=== PATIENT | female | born 1995 | race Caucasian/White ===

== ENCOUNTER 2019-05-30 13:00 | Inpatient (IN) | payer MEDICAID, SELFPAY ==
[2019-05-30 11:39] VITALS: BMI 37.3
[2019-05-30 12:10] LABS: ROM Internal Control Test YES-OK TO RESULT pt. (Internal QC); ROM Patient Test Negative (Negative)
[2019-05-30] MEDS: Lactated Ringers 1,000 ML 999 ML IV (13:20)
[2019-05-30 13:34] LABS: Absolute Neutrophil Count 10.6 X10^3/uL (2.0-7.7); Basophil# 0.04 X10^3/uL; Basophil% 0.3 % (0-1); Eosinophil# 0.04 X10^3/uL; Eosinophils% 0.3 % (0-5); Hematocrit 40.4 % (37-47); Hemoglobin 13.1 g/dL (12.0-15.0); Lymphocyte % 10.2 % (19-41); Mean Corp Hgb Conc 32.4 g/dL (32-36); Mean Corpuscular Hgb 28.2 pg (27.0-32.0); Mean Corpuscular Volume 86.9 fL (81-99); Mean Platelet Vol. 10.4 fl (6.2-12.0); Monocyte# 0.69 X10^3/uL; Monocyte% 5.4 % (0-10); NRBC Flagged by Analyzer 0 % (0-5); Neutrophil # 10.55 X10^3/uL (2.7-7.7); Neutrophil % 83.2 % (47-70); Platelet Count 239 K/mm3 (150-450); RBC Distribution Width CV 14.8 % (11.6-14.6); RBC Distribution Width SD 46.5 fl (35.1-43.9); Red Blood Count 4.65 M/mm3 (4.2-5.4); White Blood Count 12.7 K/mm3 (4.4-11.0)
[2019-05-30] MEDS: Lactated Ringers 500 ML 999 ML IV (13:45)
--- NOTE | 2019-05-30 13:59 | HP.PCM_ITS ---
History Date of Admission: 05/30/19 Final MELANIE: 05/22/19 Gestational age: 41 Weeks and 1 Days History of this : This is a 24 year-old, G [], P [], at 41 weeks gestational age. Allergies amoxicillin Allergy (Verified 05/30/19 11:40) Rash azithromycin Allergy (Verified 05/30/19 11:40) Rash cefprozil [From Cefzil] Allergy (Verified 05/30/19 11:40) Rash Home Medications: Home Medications Vits [Prenatabs FA ] 1 tablet PO DAILY MDD 06/05/14 Smoking Status: Never smoker Alcohol: None Substance Use Type: Marijuana Number of Fetus(es): 1 NST - FHR Rate Baby A Baseline: 120 Variability:: Moderate Accelerations:: 15 x 15 Uterine Activity:: Q 2 minutes History Past Pregnancies: Past Pregnancies Delivery Date Name GA/ Weeks Outcome Route Wt Infant Sex Labor Length Anesthesia Delivery Location Provider FOB Labs: See [facility] H&P Physical Exam General: Alert, Oriented x3 Abdomen: Soft, Non Tender, Non-Distended Neurological: Cranial nerves II-XII grossly intact [employer]: Normal external genitalia Estimated gestational size: Appropriate for gestational size Cervix Dilation (cm): 5.5 - AROM meconium fluid Station: -1 Effacement (%): 90 Assessment/Plan This is a 24 year-old, G2, P1001, at 41&1 weeks gestational age. Admit to L&D Expectant management GBS negative Pain - epidural as desired EFW - less than 4500g, patient with adequate pelvis
[2019-05-30] MEDS: fentaNYL-bupivacaine (epidural) 100 ML BAG EPIDURAL (14:19)
[2019-05-30] MEDS: Oxytocin 30 units/NS 500 ml 30 UNITS/500 ML IV.SOLN 334 UNITS IV (17:18)
--- NOTE | 2019-05-30 17:39 | PCM.OPRPT ---
Vaginal Delivery Maternal Presentation: Active Labor Amniotic Membrane Rupture Type: Artificial Amniotic Fluid Description: Moderate meconium Final MELANIE: 05/22/19 Gestational age: 41 Weeks and 1 Days Date of Procedure: 05/30/19 Pre-Operative Diagnosis: Labor Post-Operative Diagnosis: Labor Surgery/ Procedure Performed: Spontaneous Vaginal Delivery Type of Anesthesia: Epidural Description of Procedure: Called to room when patient C/C/+2. Patient prepped & draped in stirrups. She pushed to deliver head. head gently guided to allow delivery of anterior and posterior shoulders. No excess traction placed on head. Body delivered and 3VC clamped & cut. taken to warmer where supervisor costuming present. Placenta delivered with gentle traction. Good uterine tone obtained. Presentation: KAIN Placental Delivery Description: Expressed Placenta Disposition: [facility] Cord Vessel Description: 3 Vessels Cord Entanglement: None Estimated Blood Loss: 250ml A gender: Female (1 minute): 8 (5 minute): 9 Episiotomy Description: None Laceration: 1st degree - left sided vaginal - repaired with 3-0 vicryl Medications given after delivery: IV Pitocin Complications: None
[2019-05-30 19:32] VITALS: BP 122/60; PULSE 93; RESP 16; TEMP 36.8
[2019-05-31 00:29] VITALS: BP 103/55; PULSE 76; RESP 14; TEMP 37.1
[2019-05-31] MEDS: Ibuprofen 600 MG Tablet PO (02:52)
[2019-05-31 03:53] VITALS: BP 110/49; PULSE 73; RESP 14; TEMP 36.9
--- NOTE | 2019-05-31 07:43 | DCINST_ITS ---
Discharge Diet: No Restrictions Discharge Activity: May Drive, May Shower May resume sexual activity in: 6 weeks Additional Instructions: If you experience any of the following, contact your healthcare provider. * Bleeding that soaks a pad every hour for 2 hours * Fever 100.4 or higher * Unrelieved incision or abdominal pain * Swelling, redness, discharge or bleeding from your incision or episiotomy site * Your incision begins to separate * Problems urinating (including inability to urinate or burning while urinating). * Visual changes * Severe headache * Flu-like symptoms * Pain or redness in one of both of your breasts * Pain, warmth, tenderness or swelling in your legs, especially the calf area * Frequent nausea and vomiting * Symptoms of depression or anxiety If you experience any of the following, call 911 or go to the nearest Emergency Room. * Chest pain * Problems breathing * Seizure activity * Partial or complete paralysis of a body part, slurred speech, weakness or drooping of the face, or a sudden inability to walk or hold your balance Allergies/Adverse Reactions: Allergies amoxicillin Allergy (Verified 05/30/19 11:40) Rash azithromycin Allergy (Verified 05/30/19 11:40) Rash cefprozil [From Cefzil] Allergy (Verified 05/30/19 11:40) Rash Medications to take at Discharge Vits [Prenatabs FA ] 1 tablet PO DAILY MDD 06/05/14 Acetaminophen [Tylenol] 1,000 mg PO Q8H PRN PRN tab 05/31/19 Ibuprofen [Motrin] 600 mg PO Q6H PRN PRN tab 05/31/19 Primary Care Physician: Anjali Harrington MD [Primary Care Provider] - Test Results: Test results from this visit will be discussed in further detail at your follow- up appointment, if applicable.
--- NOTE | 2019-05-31 07:43 | PCM.DCVAG ---
Discharge Diet: No Restrictions Discharge Activity: May Drive, May Shower May resume sexual activity in: 6 weeks Additional Instructions: If you experience any of the following, contact your healthcare provider. Bleeding that soaks a pad every hour for 2 hours Fever 100.4 or higher Unrelieved incision or abdominal pain Swelling, redness, discharge or bleeding from your incision or episiotomy site Your incision begins to separate Problems urinating (including inability to urinate or burning while urinating). Visual changes Severe headache Flu-like symptoms Pain or redness in one of both of your breasts Pain, warmth, tenderness or swelling in your legs, especially the calf area Frequent nausea and vomiting Symptoms of depression or anxiety If you experience any of the following, call 911 or go to the nearest Emergency Room. Chest pain Problems breathing Seizure activity Partial or complete paralysis of a body part, slurred speech, weakness or drooping of the face, or a sudden inability to walk or hold your balance Allergies/Adverse Reactions: Allergies amoxicillin Allergy (Verified 05/30/19 11:40) Rash azithromycin Allergy (Verified 05/30/19 11:40) Rash cefprozil [From Cefzil] Allergy (Verified 05/30/19 11:40) Rash Medications to take at Discharge Vits [Prenatabs FA ] 1 tablet PO DAILY MDD 06/05/14 Acetaminophen [Tylenol] 1,000 mg PO Q8H PRN PRN tab 05/31/19 Ibuprofen [Motrin] 600 mg PO Q6H PRN PRN tab 05/31/19 Primary Care Physician: Anjali Harrington MD [Primary Care Provider] - Test Results: Test results from this visit will be discussed in further detail at your follow-up appointment, if applicable.
--- NOTE | 2019-05-31 07:43 | PCM.PN.OB ---
Subjective: Denies complaints - Physical Exam Vitals/I&O's: Vital Signs Temp Pulse Resp BP 98.4 F 73 14 110/49 L 05/31/19 03:53 05/31/19 03:53 05/31/19 03:53 05/31/19 03:53 Oxygen Delivery Method Room Air Weight: 204 lb Body Mass Index (BMI) 37.3 Intake and Output for Last 24 Hours 05/29/19 05/30/19 05/31/19 23:59 23:59 23:59 Intake Total 1999. / 1999. Output Total 500 / 500 300 / 300 Balance 1500.00 / 1500.00 -300 / -300 General: Alert, Oriented x3 Abdomen: Soft, Non Tender, Non-Distended - ff mid & below umb Extremities: No Calf Tenderness Laboratory Results 05/30/19 11:45: Vag Amniotic Fld Detect Negative 05/30/19 13:20: WBC 12.7 H, RBC 4.65, Hgb 13.1, Hct 40.4, MCV 86.9, MCH 28.2, MCHC 32.4, RDW Std Deviation 46.5 H, RDW Coeff of Jose M 14.8 H, Plt Count 239, MPV 10.4, Immature Gran % (Auto) 0.600, Neut % (Auto) 83.2 H, Lymph % (Auto) 10.2 L, [place] % (Auto) 5.4, Eos % (Auto) 0.3, Baso % (Auto) 0.3, Absolute Neuts (auto) 10.6 H, Absolute Lymphs (auto) 1.30, Nucleated RBC % 0 05/30/19 13:20: Blood Type B POSITIVE, Antibody Screen NEGATIVE Current Medications Acetaminophen (Tylenol) 1,000 mg PO Q8H PRN PRN PRN Reason: Pain Score 1-3/10 Bisacodyl (Dulcolax) 10 mg RECTAL UD PRN PRN Reason: If no BM Dibucaine (Dibucaine) 1 applic TOPICAL TID PRN PRN; Protocol PRN Reason: Discomfort Hydrocortisone (Hytone) 1 applic TOPICAL TID PRN PRN; Protocol PRN Reason: Discomfort Ibuprofen (Motrin) 600 mg PO Q6H PRN PRN PRN Reason: Pain Score 1-3/10 Last Admin: 02/07/20 02:52 Dose: 600 mg Documented by: Methylergonovine Maleate (Methergine) 0.2 mg IM X1 PRN PRN Reason: Excess bleeding/uterine atony Ondansetron HCl (Zofran) 4 mg IV Q4H PRN PRN PRN Reason: Nausea Oxycodone HCl (Oxyir) 5 - 10 mg PO Q4H PRN PRN PRN Reason: Pain Score 4-10/10 Senna/Docusate Sodium (Senokot-S, Claudette-Colace) 1 - 2 tablet PO DAILY PRN PRN PRN Reason: Constipation Simethicone (Mylicon) 80 mg PO PCHS PRN PRN Reason: Indigestion/Stomach pain Sodium Chloride () 5 - 15 ml IV UD PRN PRN Reason: SALINE FLUSH Medical Necessity - Tobacco Use Smoking Status: Never smoker Assessment/Plan PPD#1 Routine care D/c home later today per patient request
[2019-05-31 09:20] VITALS: BP 116/43; PULSE 82; RESP 16; TEMP 36.6
[2019-05-31 12:30] VITALS: BP 115/54; PULSE 69; TEMP 36.8
[2019-05-31 15:45] VITALS: BP 116/54; PULSE 75; TEMP 36.9
== END 2019-05-31 19:05 | disposition home or self-care (01) | DRG 560 ==
LOC: WPOUT 13:08 → WP 13:08
PROVIDERS: Advanced Practice Midwife; Admitting Provider Obstetrics & Gynecology; PCP Pediatrics; Referring Provider Obstetrics & Gynecology; Visit Provider Obstetrics & Gynecology
DX: O48.0 Post-term pregnancy (principal); O77.0 Labor and delivery complicated by meconium in amniotic fluid; O70.0 First degree perineal laceration during delivery; K21.9 Gastro-esophageal reflux disease without esophagitis; Z3A.41 41 weeks gestation of pregnancy; Z37.0 Single live birth
CPT/HCPCS: 84112; 85025; 86850; 86900; 86901; 99218; J7120; G0378

== ENCOUNTER 2020-12-29 22:02 | Emergency (ER) | payer MEDICAID, SELFPAY ==
[2020-12-29 22:03] VITALS: BP 130/67; PULSE 88; RESP 18; TEMP 36.6; O2SAT 98; BMI 25.9
--- NOTE | 2020-12-29 23:31 | EX.ED.DYSGE1 ---
HPI History of Present Illness Chief Complaint: Other, Pain/Inj Informant: patient Onset/Context/Timing Onset: Weeks Context: Gradual Onset Timing: Waxes and wanes Current Severity: Mild Maximum Severity: Moderate Narrative Narrative: Patient presents secondary to abdominal pain. She states 2 weeks ago she noted pain under her left ribs that seem to be worse after she would eat, especially a lot of junk food. She also developed pain on the right groin at that time. She states she did note that the pain was better after she would work out. Today she has reproducible tenderness over the lower ribs bilaterally. She thought this was lymph nodes. She does report some mild shortness of breath but no cough. She had some slight chest tightness and states that she felt like she was having a panic attack because of the pain. She denies any significant past medical or surgical history. She denies any possibility of . PFSH PFSH no medical history Home Medications vit,[id number] [Prenatabs FA] 1 tab PO DAILY MDD 06/05/14 [History Last Taken 05/29/19] acetaminophen 1,000 mg PO Q8H PRN PRN tab 05/31/19 [Rx Last Taken Unknown] ibuprofen 600 mg PO Q6H PRN PRN tab 05/31/19 [Rx Last Taken Unknown] sulfamethoxazole-trimethoprim [Bactrim DS] 1 tab PO BID #6 tab 12/30/20 [Rx Last Taken Unknown] Allergy/AdvReac Type Severity Reaction Status Date / Time amoxicillin Allergy Rash Verified 12/29/20 22:02 azithromycin Allergy Rash Verified 12/29/20 22:02 cefprozil [From Cefzil] Allergy Rash Verified 12/29/20 22:02 Surgical History H/O wisdom tooth extraction Social History Smoking Status: Never smoker ROS ROS ED Constitutional Constitutional ED: Denies chills or fever(s) Eyes Eyes: Denies change in vision ENT ENT ED: Denies sore throat Cardiovascular Cardiovascular: Reports chest pain Respiratory/Chest Respiratory/Chest: Reports dyspnea; Denies cough Gastrointestinal Gastrointestinal: Reports abdominal pain; Denies diarrhea, nausea or vomiting Genitourinary Genitourinary ED: Denies dysuria or hematuria Musculoskeletal Musculoskeletal: Denies back pain Integumentary Denies rash Neurologic Neurologic: Denies headache(s) or weakness Psychiatric Psychiatric: Denies anxiety or depression Endocrine Endocrinology: Denies polydipsia or polyuria Allergic/Immunologic Allergic/Immunologic ED: Denies urticaria EXAM Physical Exam Const Vital Signs: 12/29/20 22:03 12/29/20 23:45 Temperature 98 F Temperature Source Temporal Pulse Rate 88 Respiratory Rate 18 Respiratory Effort Normal Non-Labored Respiratory Pattern Normal Blood Pressure 130/67 H Blood Pressure Mean 88 Pulse Ox 98 Oxygen Delivery Method Room Air Positive well nourished and well developed General Appearance ED: well developed HEENT Reports normocephalic and head/scalp atraumatic Eyes PERRL and EOMs intact bilaterally Neck supple Chest Wall inspection of chest normal and palpation of chest normal Resp normal respiratory effort and clear to auscultation bilaterally Cardio regular rate and regular rhythm GI normal to inspection, nondistended, normoactive bowel sounds and non-tender Palpation: soft Extremity normal to inspection Neuro oriented x3 and no sensory deficits noted Sensorium / Orientation: alert Motor Exam: strength 5/5 throughout Psych mental status grossly normal Skin no rashes or lesions noted MDM MDM MDM Narrative Medical decision making narrative: Patient is given dose of Toradol. Lab work and urinalysis obtained. Lab Data Attestation: I reviewed the patient's lab results. Labs: Laboratory Results - last 24 hr 12/29/20 12/29/20 12/29/20 23:10 23:10 23:35 WBC 7.4 RBC 4.80 Hgb 13.5 Hct 41.5 MCV 86.5 MCH 28.1 MCHC 32.5 RDW Std Deviation 41.4 RDW Coeff of Jose M 13.3 Plt Count 327 MPV 9.8 Immature Gran % (Auto) 0.400 Neut % (Auto) 56.6 Lymph % (Auto) 31.0 [place] % (Auto) 9.7 Eos % (Auto) 1.4 Baso % (Auto) 0.9 Absolute Neuts (auto) 4.2 Absolute Lymphs (auto) 2.29 Nucleated RBC % 0 Sodium 139 Potassium 3.3 L Chloride 108 H Carbon Dioxide 28.0 Anion Gap 3 L BUN 13 Creatinine 0.84 Estim Creat Clear Calc 80.97 Est GFR (MDRD) Af Amer 106 Est GFR (MDRD) Non-Af 88 BUN/Creatinine Ratio 15.5 Glucose 79 Calcium 9.4 Total Bilirubin 0.30 Direct Bilirubin 0.09 AST 21 ALT 33 Alkaline Phosphatase 70 Total Protein 8.7 H Albumin 3.5 Globulin 5.2 H Lipase 142 Urine Color Yellow Urine Clarity Clear Urine pH 7.0 Ur Specific [place] 1.015 Urine Protein 15 H Urine Glucose (UA) Normal Urine Ketones Negative Urine Occult Blood Negative Urine Nitrite Negative Urine Bilirubin Negative Urine Urobilinogen Normal Ur Leukocyte Esterase 100 H Urine RBC 0 SEEN Urine WBC 5-10 SEEN Ur Squamous Epith Cells 0-5 SEEN Urine Bacteria 1+ Urine Mucus 0 SEEN Radiography Diagnostic Testing: Radiology Impression Chest X-Ray 12/29/20 23:55 IMPRESSION: Negative x-ray examination of the chest. Electronically Signed: Jose Maria Gannon MD at 0:07 EDT Tel , Service support , Treatment and Re-Evaluation Comments:: On repeat evaluation patient resting comfortably. Lab work remarkable only for slightly low potassium at 3.3. LFTs and lipase normal. Urinalysis does reveal white cells with 1+ bacteria. She will be covered with 3 days of Bactrim. Discharge Plan Triage Chief Complaint: Other, Pain/Inj ED Provider: Saima Maddox Dx/Rx/DC Orders Clinical Impression: Abdominal pain, UTI (urinary tract infection) Instructions: ED Pain, Acute, Uncertain Cause, ED CYSTITIS Female Adult Prescriptions: New sulfamethoxazole-trimethoprim [Bactrim DS] 800-160 mg tablet 1 tab PO BID Qty: 6 RF: 0 No Action vit,[id number] [Prenatabs FA] 1 TABLET tablet 1 tab PO DAILY MDD RF: 0 acetaminophen 500 MG tablet 1,000 mg PO Q8H PRN PRN (Reason: Pain Score 1-3/10) RF: 0 ibuprofen 600 MG tablet 600 mg PO Q6H PRN PRN (Reason: Pain Score 1-3/10) RF: 0 Primary Care Provider: Care Physician,No Primary Referrals: Sharath Cordero MD [STAFF PHYSICIAN] - 10-14 Days if not better Care Physician,No Primary [Primary Care Provider] - Disposition Disposition: Home, Self Care
[2020-12-29 23:49] LABS: Mucous, Urine 0 SEEN /hpf (<or=2+); Red Blood Cells-Urine 0 SEEN /hpf (0-5)
[2020-12-29 23:50] LABS: Absolute Lymphocyte Count 2.29 X10^3/uL (0.83-4.51); Absolute Neutrophil Count 4.2 X10^3/uL (2.0-7.7); Basophil# 0.07 X10^3/uL; Basophil% 0.9 % (0-1); Eosinophils% 1.4 % (0-5); Hematocrit 41.5 % (37-47); Hemoglobin 13.5 g/dL (12.0-15.0); Lymphocyte # 2.29 X10^3/ul (0.83-4.51); Mean Corp Hgb Conc 32.5 g/dL (32-36); Mean Corpuscular Hgb 28.1 pg (27.0-32.0); Mean Corpuscular Volume 86.5 fL (81-99); Mean Platelet Vol. 9.8 fl (6.2-12.0); Monocyte# 0.72 X10^3/uL; Monocyte% 9.7 % (0-10); NRBC Flagged by Analyzer 0 % (0-5); Neutrophil # 4.18 X10^3/uL (2.7-7.7); Neutrophil % 56.6 % (47-70); Platelet Count 327 K/mm3 (150-450); RBC Distribution Width CV 13.3 % (11.6-14.6); RBC Distribution Width SD 41.4 fl (35.1-43.9); White Blood Count 7.4 K/mm3 (4.4-11.0)
[2020-12-29 23:52] LABS: Color, Urine Yellow (Yellow); Glucose, Dipstick Normal (Normal); Ketone-Dipstick Negative (Negative); Leukocyte Esterase-Dipstick 100 /ul (Negative); Nitrite-Dipstick Negative (Negative); Occult Blood-Urine Negative /ul (Negative); Protein-Dipstick 15 mg/dl (Negative); Specific Gravity, Urine 1.015 (1.002-1.030); Urine Bilirubin Dipstick Negative (Negative); Urine Clarity Clear (Clear); Urine Urobilinogen Normal (Normal)
--- NOTE | 2020-12-29 23:55 | RAD_ITS ---
STUDY: X-RAY CHEST REASON FOR EXAM: Female, 25 years old. lower rib pain, sob TECHNIQUE: PA and lateral COMPARISON: None. FINDINGS: The lungs are clear and expanded. There is no demonstrated pleural abnormality. Normal size heart. Normal mediastinum and ebony. Normal visualized pulmonary arteries. Normal visualized aortic arch and descending thoracic aorta. Normal visualized thoracic spine. Normal visualized ribs, clavicles, and shoulders. There is no demonstrated abnormality of the visualized soft tissue structures of the upper abdomen. RAD/Chest PA and Lateral IMPRESSION: Negative x-ray examination of the chest. Electronically Signed: Jose Maria Gannon MD at 0:07 EDT Tel , Service support ,
[2020-12-30 00:04] LABS: Bacteria 1+ /hpf (None Seen); Squamous Epithelial Cells - UA 0-5 SEEN /hpf (5-10); White Blood Cells 5-10 SEEN /hpf (0-5)
[2020-12-30 00:08] LABS: AST(SGOT) 21 U/L (15-37); Alanine Aminotransfer ALT/SGPT 33 U/L (13-56); Albumin, Serum 3.5 g/dL (3.2-5.0); Alkaline Phosphatase 70 U/L (45-117); Anion Gap 3 (5-15); BUN 13 mg/dL (7-18); BUN/Creat Ratio 15.5 RATIO (10-20); Bilirubin, Direct 0.09 mg/dL (0.00-0.30); Calcium,Total 9.4 mg/dL (8.5-10.1); Chloride 108 mmol/L (98-107); Creatinine, Serum 0.84 mg/dL (0.55-1.02); EST Glomerular Filtration Rate 88 mL/min (>60); Est Glom Filt Rate - Afr Amer 106 mL/min (>60); Estimated Creatinine Clearance 80.97 ml/min; Globulin 5.2 g/dL (2.2-4.2); Glucose 79 mg/dL (74-106); Lipase 142 U/L (73-393); Potassium 3.3 mmol/L (3.5-5.1); Protein, Total 8.7 g/dL (6.4-8.2); Sodium Level 139 mmol/L (136-145)
[2020-12-30] MEDS: Smz/Tmp Ds Tablet 1 TABLET PO (01:28)
[2020-12-30 01:29] VITALS: PULSE 76; RESP 14; O2SAT 98
== END 2020-12-30 01:29 | disposition home or self-care (01) ==
PROVIDERS: Emergency Provider Emergency Medicine
DX: R10.9 Unspecified abdominal pain (principal); N39.0 Urinary tract infection, site not specified
CPT/HCPCS: 71046; 80048; 80076; 81001; 83690; 85025; 99283

== ENCOUNTER 2021-04-01 18:30 | Emergency (ER) | payer MEDICAID, SELFPAY ==
[2021-04-01 18:31] VITALS: BP 153/74; PULSE 86; RESP 15; TEMP 36.2; O2SAT 98; BMI 27.8
--- NOTE | 2021-04-01 18:34 | RAD_ITS ---
EXAM: XR CHEST, 1 VIEW CLINICAL INDICATION: chest pain TECHNIQUE: Frontal view of the chest. This report was created using [employer] report generation technology. COMPARISON: Chest x-ray 12/29/2020. FINDINGS: LUNGS AND PLEURAL SPACES: Unremarkable. No consolidation or edema. No pneumothorax. No effusion. HEART: Unremarkable. Cardiac silhouette not enlarged. MEDIASTINUM: Central airways and mediastinal contour are unremarkable. BONES/JOINTS: Unremarkable. SOFT TISSUES: Unremarkable. RAD/Chest 1 View (Portable) IMPRESSION: No radiographic evidence of acute cardiopulmonary disease. Electronically Signed: Gerber Mora MD at 21:35 EST Tel , Service support ,
--- NOTE | 2021-04-01 18:34 | EKG12_ITS ---
Test Reason : CP Blood Pressure : / mmHG Vent. Rate : 081 BPM Atrial Rate : 081 BPM P-R Int : 136 ms QRS Dur : 092 ms QT Int : 368 ms P-R-T Axes : 036 057 -07 degrees QTc Int : 427 ms Normal sinus rhythm Nonspecific T wave abnormality Abnormal ECG Confirmed by DOROTHY CONNER, MARIAM ([id number]), design editor MARLENE JANSEN ([id number]) on 04/02/2021 11:39:32 AM Referred By: DULCE Confirmed By:MARIAM DE LA CRUZ MD
--- NOTE | 2021-04-01 21:27 | EDS_ITS ---
HPI History of Present Illness Chief Complaint: Chest Pain Informant: patient Onset/Context/Timing Onset: Today Activity at onset: sudden Timing: Intermittent (Lasting seconds) Quality: Positive for Pressure and Sharp Location: Substernal Current Severity: Gone Maximum Severity: Moderate Worsened By: Nothing Relieved By: Nothing Associated Symptoms: Positive for - (There is no radiation.); Negative for Nausea, Vomiting, Diaphoresis, Dyspnea, Cough, Fever, Lightheadedness, Acid Reflux and Palpitations Narrative Narrative: Patient is a 25-year-old female who presents with intermittent sharp central chest pain that occurred after eating spicy food. She denies history of reflux, peptic ulcer disease or hiatal hernia. She denies intolerance to greasy or fried foods. She denies family history of cholelithiasis. Patient did not take anything for the pain. Patient is alert control pills. She has no symptoms or complaints presently Prior Similar Symptoms: No CVD Risk Factors: Negative for Hypertension, Diabetes, Hypercholesterolemia, Family History 1' </=55 and Smoking PE Risk Factors: Negative for Recent Travel/Surgery, Recent Immobilization, Prior DVT or PE, Cancer and OCP + Smoking + >/=35 TAD Risk Factors: Negative for Marfan's Syndrome, Hypertension and Family History PFSH PFSH Home Medications vit,[id number] [Prenatabs FA] 1 tab PO DAILY MDD 06/05/14 [History Last Taken 05/29/19] acetaminophen 1,000 mg PO Q8H PRN PRN tab 05/31/19 [Rx Last Taken Unknown] ibuprofen 600 mg PO Q6H PRN PRN tab 05/31/19 [Rx Last Taken Unknown] sulfamethoxazole-trimethoprim [Bactrim DS] 1 tab PO BID #6 tab 12/30/20 [Rx Last Taken Unknown] Allergy/AdvReac Type Severity Reaction Status Date / Time amoxicillin Allergy Rash Verified 04/01/21 18:33 azithromycin Allergy Rash Verified 04/01/21 18:33 cefprozil [From Cefzil] Allergy Rash Verified 04/01/21 18:33 Surgical History H/O wisdom tooth extraction Social History (Updated 04/01/21 @ 21:[address] Chrsi Esteban MD) household members: none Smoking Status: Never smoker alcohol intake: current alcohol intake frequency: holidays/special occasions only substance use type: does not use ROS ROS ED Constitutional Constitutional ED: Denies chills, fever(s), subjective or sweats Eyes Eyes: Reports none ENT ENT ED: Denies ear pain, rhinorrhea or sore throat Cardiovascular Cardiovascular: Reports as per HPI; Denies orthopnea or paroxysmal nocturnal dyspnea Respiratory/Chest Respiratory/Chest: Denies cough, dyspnea, dyspnea on exertion, orthopnea, paroxysmal nocturnal dyspnea or sputum Gastrointestinal Gastrointestinal: Denies abdominal pain, constipation, diarrhea, nausea or vomiting Genitourinary Genitourinary ED: Denies dysuria, hematuria or urinary frequency Musculoskeletal Musculoskeletal: Denies arthralgias, back pain, myalgias or neck pain Integumentary Denies abscess or rash Neurologic Neurologic: Denies headache(s) or weakness Endocrine Endocrinology: Denies polydipsia, polyphagia or polyuria Hematologic/Lymphatic Hematologic/Lymphatic: Denies easy bleeding or easy bruising Allergic/Immunologic Allergic/Immunologic ED: Denies mouth swelling or urticaria EXAM Physical Exam Const Vital Signs: 04/01/21 18:31 Temperature 97.2 F L Temperature Source Temporal Pulse Rate 86 Respiratory Rate 15 Blood Pressure 153/74 H Blood Pressure Mean 100 Pulse Ox 98 Oxygen Delivery Method Room Air Positive well nourished and well developed General Appearance ED: well developed and NAD; Negative for pallor HEENT Reports moist mucous membranes normocephalic and atraumatic Eyes PERRL and EOMs intact bilaterally General Eye ED: Negative for pale conjunctiva or scleral icterus Neck no lymphadenopathy, supple and no JVD Chest Wall palpation of chest normal Resp normal respiratory effort Effort and Inspection: respiratory distress Cardio regular rate, regular rhythm, S1 normal heart sound and S2 normal heart sound GI normal to inspection, nondistended, normoactive bowel sounds, soft to palpation and non-tender; Negative for hepatosplenomegaly GI Narrative: Negative clinical Wild sign Back/Spine no CVA tenderness and no thoracic nor lumbar tenderness Cervical Spine: Negative for cervical spine tenderness Extremity normal to inspection Extremity Narrative: There is no asymmetry, swelling, discoloration, leg vein distention, palpable cords or tenderness along the distribution of the deep venous system. General Extremety ED: Negative for edema or tenderness General Extremity: Negative for edema Neuro oriented x3 and CN's II-XII intact bilaterally Sensorium / Orientation: awake and alert Psych mental status grossly normal Skin no rashes or lesions noted and no wounds General Skin Exam: Negative for jaundice or pallor Heart Score History: Slightly/Non-Suspicious ECG: Normal Age: </= 45 years Risk Factors: No Risk Factors Score: 0 MDM MDM MDM Narrative Medical decision making narrative: With history of transient chest pain lasting seconds this is noncardiac etiology. Per nurse protocol chest x-ray and EKG was placed. Chest x-ray is unremarkable. EKG is normal. There is a flipped T wave in lead III which is a normal variant. Radiography Chest X-Ray - ED: 1 View, Read by ED Physician, Normal, Heart, Lungs, Mediastinum and Bony Structures EKG Initial EKG: Attestation: I personally reviewed and interpreted this EKG as follows: Interpretation: Sinus Rhythm (Ventricular rate of 81. AR interval 136 ms. QS duration 92 ms. QT duration 368 ms. [place] is normal. There is no abnormality noted.) Discharge Plan Triage Chief Complaint: Chest Pain ED Provider: Chris Esteban Dx/Rx/DC Orders Clinical Impression: Intermittent chest pain Instructions: ED Chest Pain, Noncardiac Prescriptions: No Action vit,[id number] [Prenatabs FA] 1 TABLET tablet 1 tab PO DAILY MDD RF: 0 acetaminophen 500 MG tablet 1,000 mg PO Q8H PRN PRN (Reason: Pain Score 1-3/10) RF: 0 ibuprofen 600 MG tablet 600 mg PO Q6H PRN PRN (Reason: Pain Score 1-3/10) RF: 0 sulfamethoxazole-trimethoprim [Bactrim DS] 800-160 mg tablet 1 tab PO BID Qty: 6 RF: 0 Primary Care Provider: Care Physician,No Primary Referrals: Niru Young MD [STAFF PHYSICIAN] - 3-5 Days if not improving Care Physician,No Primary [Primary Care Provider] - Disposition Disposition: Home, Self Care
[2021-04-01 21:42] VITALS: BP 120/107; PULSE 69; RESP 17; O2SAT 100
[2021-04-01 21:50] LABS: Absolute Lymphocyte Count 1.66 X10^3/uL (0.83-4.51); Absolute Neutrophil Count 3.6 X10^3/uL (2.0-7.7); Basophil# 0.04 X10^3/uL; Basophil% 0.7 % (0-1); Eosinophil# 0.16 X10^3/uL; Eosinophils% 2.6 % (0-5); Hematocrit 39.8 % (37-47); Hemoglobin 12.8 g/dL (12.0-15.0); Lymphocyte # 1.66 X10^3/ul (0.83-4.51); Lymphocyte % 27.4 % (19-41); Mean Corp Hgb Conc 32.2 g/dL (32-36); Mean Corpuscular Volume 87.1 fL (81-99); Mean Platelet Vol. 9.9 fl (6.2-12.0); Monocyte# 0.59 X10^3/uL; Monocyte% 9.7 % (0-10); NRBC Flagged by Analyzer 0 % (0-5); Neutrophil # 3.59 X10^3/uL (2.7-7.7); Neutrophil % 59.3 % (47-70); Platelet Count 305 K/mm3 (150-450); RBC Distribution Width CV 13.3 % (11.6-14.6); RBC Distribution Width SD 42.1 fl (35.1-43.9); Red Blood Count 4.57 M/mm3 (4.2-5.4); White Blood Count 6.1 K/mm3 (4.4-11.0)
[2021-04-01 22:07] LABS: Anion Gap 8 (5-15); BUN 9 mg/dL (7-18); BUN/Creat Ratio 11.9 RATIO (10-20); Chloride 109 mmol/L (98-107); Creatinine, Serum 0.76 mg/dL (0.55-1.02); EST Glomerular Filtration Rate 98 mL/min (>60); Est Glom Filt Rate - Afr Amer 119 mL/min (>60); Glucose 91 mg/dL (74-106); Potassium 3.5 mmol/L (3.5-5.1); Sodium Level 140 mmol/L (136-145); Troponin-I HS < 3 pg/mL (3.0-54.0)
== END 2021-04-01 21:51 | disposition home or self-care (01) ==
LOC: ED 21:47
PROVIDERS: Emergency Provider Emergency Medicine
DX: R07.89 Other chest pain (principal)
CPT/HCPCS: 71045; 80048; 84484; 85025; 93005; 99284; A4216

== ENCOUNTER 2024-12-13 19:16 | Emergency (ER) | payer MEDICAID, SELFPAY ==
[2024-12-13 19:16] VITALS: BP 112/82; PULSE 87; RESP 16; TEMP 36.3; O2SAT 99; BMI 32.5
--- NOTE | 2024-12-13 19:25 | RAD_ITS ---
PROCEDURE: RIBS DWIGHT MIN 4V W/PA CHEST 12/13/2024 REASON FOR EXAM: PAIN. Right anterior and mid pain. TECHNIQUE: RIBS DWIGHT MIN 4V W/PA CHEST FINDINGS: LUNGS AND PLEURA: The lungs are clear. No pleural effusion or pneumothorax. HEART AND MEDIASTINUM: The heart size and mediastinal contours are normal. BONES: No acute osseous abnormality. RAD/Ribs Dwight Min 4V w/PA Chest IMPRESSION: No acute rib fracture identified. No pneumothorax. Reading Location: [id number]
--- NOTE | 2024-12-13 20:54 | EX.ED.DYSGE1 ---
HPI History of Present Illness Chief Complaint: Chest Other Informant: patient Narrative Narrative: Recent increased productive cough yesterday coughing with right ear pain. No fevers she vapes. No asthma history. No vomiting or diarrhea. States having chills. No urinary symptoms. Last menstrual period a week ago. No history of gastric ulcers or kidney injury. PFSH PFSH Home Medications ?Medication ?Instructions ?Recorded ?Last Taken ?Type albuterol sulfate 90 mcg/actuation 1 - 2 puff inhalation Q4H PRN PRN 12/13/24 Unknown Rx aerosol inhaler (Ventolin HFA) Wheezing ##1 nicotine (polacrilex) 2 mg gum 2 mg buccal Q8H PRN nicotine 12/13/24 Unknown Rx cravings #50 ea Allergy/AdvReac Type Severity Reaction Status Date / Time amoxicillin Allergy Rash Verified 12/13/24 19:18 azithromycin Allergy Rash Verified 12/13/24 19:18 [email or web address] (From Cefzil) Allergy Rash Verified 12/13/24 19:18 Surgical History H/O wisdom tooth extraction Social History household members: none Smoking Status: Current every day smoker tobacco type: e-cigarettes alcohol intake: current alcohol intake frequency: holidays/special occasions only substance use type: does not use ROS ROS ED Constitutional Constitutional ED: Reports chills; Denies fever(s) Cardiovascular Cardiovascular: Denies chest pain Respiratory/Chest Respiratory/Chest: Reports cough Gastrointestinal Gastrointestinal: Denies diarrhea or vomiting Musculoskeletal Musculoskeletal: Reports none and other Details: Right rib pain Integumentary Denies rash or wounds Neurologic Neurologic: Denies weakness EXAM Physical Exam Const Vital Signs: 12/13/24 19:16 12/13/24 20:38 12/13/24 21:03 Temperature 97.3 F L Temperature Source Temporal Pulse Rate 87 72 Respiratory Rate 16 16 Respiratory Effort Normal Non-Labored Respiratory Pattern Normal Normal Blood Pressure 112/82 H Blood Pressure Mean 92 Pulse Ox 99 12/13/24 22:34 Temperature 98 F Temperature Source Pulse Rate 67 Respiratory Rate 18 Respiratory Effort Respiratory Pattern Blood Pressure 104/64 Blood Pressure Mean 77 Pulse Ox 100 Positive well nourished and well developed General Appearance ED: well developed and NAD HEENT Reports moist mucous membranes normocephalic and atraumatic Eyes General Eye ED: Yes normal appearance of both eyes Neck full ROM Chest Wall Chest Narrative: Tender palpation right lower ribs no crepitus. Chest: tenderness Resp Resp Narrative: Symmetric breath sounds. Mild inspiratory and expiratory wheezing. No distress. Effort and Inspection: Negative for respiratory distress Cardio regular rate, regular rhythm and no murmurs Peripheral Pulses: pulses 2+ throughout GI normal to inspection, nondistended, normoactive bowel sounds and non-tender Palpation: Negative for guarding or rebound tenderness present Extremity normal to inspection General Extremety ED: Negative for edema or tenderness General Extremity: Negative for edema Neuro oriented x3 and no sensory deficits noted Sensorium / Orientation: awake and alert Skin no rashes or lesions noted and no wounds MDM MDM MDM Narrative Medical decision making narrative: Interventions / MDM: Differential diagnosis: Upper respiratory infection, rib strain, bronchospasms Diagnosis considered but do not suspect: Pneumonia however x-ray negative. Fracture x-ray negative. Pneumothorax however x-ray negative. My EKG interpretation: N/A Imaging independently reviewed and interpreted by myself: Bilateral rib series with PA chest: No fracture, no pneumothorax, no pneumonia. External documents reviewed: N/A Test considered but not ordered:N/A ED course: Patient with mild wheezing on exam. Nontoxic no distress. Tender palpation right lower ribs. Motrin started aerosol treatment ordered. Nursing protocol ordered bilateral rib series with PA chest. Wheezing improved on reevaluation. Prescribed inhaler. She requested nicotine prescription for gum which was sent to her pharmacy. Discussed Tylenol Motrin as needed for pain control. Outpatient follow-up given. All questions were answered. Re-evaluation: stable Disposition discussed with patient/family/significant other: Patient Case discussed with consulting clinician: N/A This note was generated with [employer] dictation software. It may contain incorrect words, spelling, and punctuation that were not noted in checking the note before signing. Radiography Diagnostic Testing: Clinical Impression(s) from Imaging Studies Ribs w/Chest X-Ray 12/13/24 19:25 IMPRESSION: No acute rib fracture identified. No pneumothorax. Reading Location: [facility] Discharge Plan Triage Chief Complaint: Chest Other ED Provider: Le,David Dx/Rx/DC Orders Clinical Impression: URI (upper respiratory infection), Bronchospasm, Rib sprain, Current every day vaping Instructions: ED Bronchospasm (Adult), ED URI, Viral, No Abx (Adult) Prescriptions: New albuterol sulfate [Ventolin HFA] 90 mcg/actuation HFA aerosol inhaler 1 - 2 puff inhalation Q4H PRN PRN (Reason: Wheezing) Qty: 1 0RF nicotine (polacrilex) 2 mg gum 2 mg buccal Q8H PRN (Reason: nicotine cravings) Qty: 50 0RF Primary Care Provider: Care Physician,No Primary Referrals: Sylvie Sun DO [Med Staff - Active Staff] - 1-2 Weeks Care Physician,No Primary [Primary Care Provider] - Activity Restrictions/Additional Instructions: Your rib x-rays and chest x-ray are negative. Use inhaler as needed for wheezing. Continue ibuprofen or Tylenol to help with pain. Follow-up with primary care provider to get establish care. Print Language: Marshallese Disposition Disposition: Home, Self Care Discharge Date/Time: 12/13/24 22:36
--- OUTSIDE RECORDS SUMMARY | 2024-12-13 20:58 | XMS RPT_ITS | CCD ---
Author Organization [facility] Care Team Providers Care Educational Assistant Name Role Phone Unavailable Primary Care Provider UnavailRicardo Kohler MD Primary Care Provider CLARK HOYOS Attending Unavailable RICARDO TELLEZ Primary Care Unavailab Ricardo Nix MD Primary Care Provider Podlogar CHEMIST ASSISTANTJoaquina CISNEROS Unavailable [phone] Allergies Allergy Classification Reported Allergen(s) Allergy Type Date of Onset Reaction(s) Facility (6 sources) Amoxicillin; Translations: [AMOXICILLIN] Drug Allergy 01-28-2005 [facility] [place] Work Phone: (6 sources) Azithromycin; Translations: [AZITHROMYCIN] Drug Allergy 01-28-2005 [facility] [place] Work Phone: (6 sources) cefprozil; Translations: [CEFPROZIL] Drug Allergy 01-28-2005 [facility] [place] Work Phone: Medications Current Medications Medication Drug Class(es) Dates Sig (Normalized) Sig (Original) clindamycin 300 mg oral capsule (1 source) Lincosamide Antibacterial Start: 03-26-2023 End: 04-05-2023 take 1 capsule by mouth three times daily clindamycin (CLEOCIN HCL) 300 mg capsule Take 1 capsule by mouth three times a day for 10 days. 30 capsule 0 03/26/2023 04/05/2023 Active Comment on above: Take 1 capsule by [facility] three times a day for 10 days. Desogestrel / Ethinyl Estradiol (6 sources) Progestin, Estrogen Start: 08-04-2022 take 1 tablet by mouth once daily, then take 0.15 tablet by mouth once Desogestrel-Ethinyl Estradiol (APRI) 0.15-0.03 mg per tablet Indications: Encounter for gynecological examination (general) (routine) without abnormal findings Take 1 tablet by mouth once daily. 84 tablet 4 08/04/2022 Active Start: 04-09-2021 End: 08-04-2022 take 1 tablet by mouth once daily, then take 0.15 tablet by mouth once Desogestrel-Ethinyl Estradiol (APRI) 0.15-0.03 mg per tablet Indications: Encounter for BCP ( control pills) initial prescription Take 1 tablet by mouth once daily. 84 tablet 4 04/09/2021 08/04/2022 Discontinued Start: 04-09-2021 take 1 tablet by barbara th once daily, then take 0.15 tablet by mouth once Desogestrel-Ethinyl Estradiol (APRI) 0.15-0.03 mg per tablet Indications: Encounter for BCP ( control pills) initial prescription Take 1 tablet by mouth once daily. 84 tablet 4 04/09/2021 Active Comment on above: Take 1 tablet by barbara th once daily. ofloxacin 3 mg/ml otic solution (1 source) Quinolone Antimicrobial Start: 09-29-2024 End: 10-06-2024 ofloxacin (FLOXIN) 0.3 % otic solution Use 10 drops in the right ear once daily for 7 days. 4 mL 09/29/2024 10/06/2024 Active Completed/Discontinued Medications Medication Drug Class(es) Dates Sig (Normalized) Sig (Original) predniSONE 10 mg oral tablet (3 sources) Start: 11-01-2022 End: 12-20-2022 predniSONE (DELTASONE) 10 mg tablet Take 4 tabs daily x 3 days, then 3 tabs x 3 days, 2 tabs x 3 days, then 1 tab x3 days with food. 30 tablet 0 11/01/2022 12/20/2022 Discontinued (Course of therapy completed) Start: 10-04-2021 End: 08-04-2022 predniSONE (DELTASONE) 10 mg tablet Take 3 tabs daily for 3 days, then 2 tabs daily for 3 days, then 1 tab daily for 3 days with food. 18 tablet 0 10/04/2021 08/04/2022 Discontinued (Other) Comment on above: Take 3 tabs daily fo r 3 days, then 2 tabs daily for 3 days, then 1 tab daily for 3 days with food. Take 4 tabs daily x 3 days, then 3 tabs x 3 days, 2 tabs x 3 days, then 1 tab x3 days with food. Problems Active Problems Problem Classification Problem Date Documented Date Episodic/Chronic Allergic reactions (1 source) Contact dermatitis; Translations: [Unspecified contact dermatitis, unspecified cause] Episodic Cardiac dysrhythmias (1 source) Palpitations; Translations: [Palpitations] 12-20-2022 Episodic Contraceptive and procreative management (1 source) Oral contraception; Translations: [Encounter for surveillance of contraceptive pills] Episodic Menstrual disorders (1 source) Missed period; Translations: [Irregular menstruation, unspecified] 12-20-2022 Chronic Nonmalignant breast conditions (1 source) Fibrocystic change of left breast; Translations: [Diffuse cystic mastopathy of left breast] Chronic Other ear and sense organ disorders (1 source) Unspecified acute noninfective otitis externa, right ear; Translations: [Acute otitis externa of right ear, unspecified type] Onset: 09-29-2024 Episodic Other ear and sense organ disorders (1 source) Acute otitis externa of right ear; Translations: [Unspecified acute noninfective otitis externa, right ear] 09-29-2024 Episodic Other hematologic conditions (1 source) History of anemia; Translations: [Personal history of diseases of the blood and blood-forming organs and certain disorders involving the immune mechanism] 12-20-2022 Episodic Other nutritional; endocrine; and metabolic disorders (4 sources) Body mass index 40+ - severely obese; Translations: [Morbid (severe) obesity due to excess calories] Onset: 12-20-2022 12-20-2022 Chronic Other screening for suspected conditions (not mental disorders or infectious disease) (2 sources) Cancer cervix screening status; Translations: [Encounter for screening for malignant neoplasm of cervix] Episodic Other upper respiratory infections (2 sources) Sore throat symptom; Translations: [Acute pharyngitis, unspecified] 03-26-2023 Episodic Past or Other Problems Problem Classification Problem Date Documented Da te Episodic/Chronic Immunizations and screening for infectious disease (1 source) Antibody titer - finding; Translations: [Raised antibody titer] Onset: 10-28-2013 Resolved: 09-15-2016 04-19-2021 Episodic Other complications of (1 source) Anemia of ; Translations: [Anemia complicating , unspecified trimester] Onset: 03-12-2014 Resolved: 09-15-2016 09-15-2016 Chronic Other and delivery including normal (2 sources) with uncertain dates; Translations: [Encounter for supervision of normal , unspecified, unspecified trimester] Onset: 10-21-2013 Resolved: 09-15-2016 04-19-2021 Episodic Substance-related disorders (1 source) Marijuana user; Translations: [Cannabis use, unspecified, uncomplicated] Onset: 10-05-2018 Resolved: 08-08-2019 08-08-2019 Episodic Results Test Name Value Interpretation Reference Range Facility OV 09-29-2024 CNOV Office Visit ([facility] ) -------- ABIMBOLA HDZ ([id number]) 1995 F Date Time Provider Department 09/29/24 12:15 PM CLARK HOYOS [facility] During your visit today, we recorded the following information about you: Temperature Pulse Respiration Blood pressure 98.3 degrees 82/minute 22/minute 100/70 Weight 87.4 kg Clark Hoyos APRN.POLICE RADIO DISPATCHER 09/29/2024 1:05 PM Signed Subjective HPI Nontoxic-appearing female presents urgent care chief complaint right ear pain. Duration of symptoms 2 days. Associated symptoms right ear discomfort. Has been swimming late recently. No ear trauma loss hearing. Hearing is slightly muffled. No otorrhea. No fevers. Past medical history prescription medications allergies reviewed. .Patient presents with: Ear Pain: Right ear pain, feels clogged x 2 days PAST MEDICAL HISTORY Diagnosis Date Anemia in (HCC) 03/12/2014 NEGATIVE MEDICAL HISTORY 09/20/11 normal color vision PAST SURGICAL HISTORY Procedure Laterality Date PAST SURGICAL HISTORY OF 2018 wisdom teeth ALLERGIES Amoxicillin, Cefzil [Cefprozil], and Zithromax [Azithromycin] MEDICATIONS Desogestrel-Ethinyl Estradiol (APRI) 0.15-0.03 mg per tablet Take 1 tablet by mouth once daily. FAMILY HISTORY Problem Relation Age of Onset No Known Problems Mother Hypertension Father Lipids Father No Known Problems Sister No Known Problems Sister No Known Problems Sister No Known Problems Sister No Known Problems Brother Ischemic Heart Disease Maternal Grandmother Heart Maternal Grandfather SD No Known Problems Paternal Grandmother Heart Attack Paternal Grandfather No Known Problems Son Social History Tobacco Use Smoking status: Never Smokeless tobacco: Never Vaping Use Vaping status: Never Used Substance Use Topics Alcohol use: Not Currently Drug use: No BP 100/70 Pulse 82 Temp 36.8 ?C (98.3 ?F) Resp 22 Wt 87.4 kg (192 lb 10.9 oz) LMP 07/08/2022 (Exact Date) SpO2 97% BMI 35.10 kg/m? Review of Systems Constitutional: Negative for chills, fever and malaise/fatigue. HENT: Positive for ear pain. Negative for congestion, ear discharge, sinus pain and sore throat. Eyes: Negative for blurred vision, pain, discharge and redness. Respiratory: Negative for cough, hemoptysis, sputum production, shortness of breath, wheezing and stridor. Cardiovascular: Negative for chest pain. Gastrointestinal: Negative for abdominal pain, diarrhea, nausea and vomiting. Musculoskeletal: Negative for myalgias. Skin: Negative for itching and rash. Neurological: Negative for dizziness and headaches. Objective Physical Exam HENT: Head: Normocephalic. Jaw: No trismus, tenderness, swelling or pain on movement. Right Ear: External ear normal. Left Ear: Tympanic membrane, ear canal and external ear normal. Ears: Comments: Edema erythema noted to right auditory canal. Pain with palpation to pinna. No external erythema edema. Unable to visualize TM due to edema. Mild tenderness with palpation over TM joints bilaterally. Nose: No congestion. Mouth/Throat: Mouth: Mucous membranes are moist. Pharynx: Oropharynx is clear. Uvula midline. No oropharyngeal exudate or posterior oropharyngeal erythema. Eyes: Pupils: Pupils are equal, round, and reactive to light. Cardiovascular: Rate and Rhythm: Normal rate. Pulmonary: Effort: Pulmonary effort is normal. No accessory muscle usage, respiratory distress or retractions. Breath sounds: No stridor. No wheezing, rhonchi or rales. Abdominal: Palpations: Abdomen is soft. Tenderness: There is no abdominal tenderness. There is no guarding or rebound. Musculoskeletal: Cervical back: No erythema or tenderness. No pain with movement. Normal range of motion. Lymphadenopathy: Cervical: No cervical adenopathy. Neurological: General: No focal deficit present. Mental Status: She is alert and oriented to person, place, and time. Mental status is at baseline. ASSESSMENT/PLAN: 1. Acute otitis externa of right ear, unspecified type - ICD9: 380.10, ICD10: H60.501 Diagnosis otitis externa right ear. Placed on ofloxacin otic drops. Patient was educated on supportive therapies. Patient will follow up with primary care provider as needed. Patient was instructed to immediately proceed to emergency room for any new, worsening, or symptoms lasting longer than anticipated. The patient's clinical presentation is otherwise unremarkable at this time. Based on exam and clinical finding, the patient is stable for discharge. Plan of care was discussed with patient. Patient verbalizes understanding and agrees to plan of care. This note was generated using [employer] software. It may contain errors in wording, punctuation, or spelling. Clark Hoyos, SAMUEL.POLICE RADIO DISPATCHER Allergies As of Date: 09/29/2024 Noted Allergy Reaction AMOXICILLIN 01/28/2005 (more content not included)... Normal [facility] STREP A MOLECULAR (POC)on Procedural Control Valid [facility] Strep A (POCT) Positive Abnormal Negative [facility] [place] Basic Metabolic Profile (BMP )on 04-02-2021 BUN/CRE 11.9 RATIO Normal 10-20 [facility] Comment on above: Order Comment: Comme nts: Specimen #1 Performed By: #### L 100.0100, L500.2500, L501.4020 #### [facility] [address] [place], [address] CA,Total 9.0 mg/dL Normal 8.5-10.1 [facility] Comment on above: Order Comment: Comme nts: Specimen #1 Performed By: #### L 100.0100, L500.2500, L501.4020 #### [facility] [address] [place], [address] Chloride [Moles/Vol] 109 mmol/L High 98-107 [facility] Comment on above: Order Comment: Comme nts: Specimen #1 Performed By: #### L 100.0100, L500.2500, L501.4020 #### [facility] [address] [place], [address] CO2 [Moles/Vol] 23.0 mmol/L Normal 21.0-32.0 [facility] Comment on above: Order Comment: Comme nts: Specimen #1 Performed By: #### L 100.0100, L500.2500, L501.4020 #### [facility] [address] [place], [address] Creatinine [Mass/Vol] 0.76 mg/dL Normal 0.55-1.02 [facility] Comment on above: Order Comment: Comme nts: Specimen #1 Result Comment: The validity of the calculated GFR GFRAA in patients over 70 years has not been determined. Clinical correlation is essential. Performed By: #### L 100.0100, L500.2500, L501.4020 #### [facility] [address] [place], [address] ECRCL 89.50 ml/min Normal [facility] Comment on above: Order Comment: Comme nts: Specimen #1 Performed By: #### L 100.0100, L500.2500, L501.4020 #### [facility] [address] [place], [address] EST GFR - AA 119 mL/min Normal >60 [facility] Comment on above: Order Comment: Comme nts: Specimen #1 Result Comment: Afri can Trinidadian GFR Calc Performed By: #### L 100.0100, L500.2500, L501.4020 #### [facility] [address] [place], [address] GAP 8 Normal 5-15 [facility] Comment on above: Order Comment: Comme nts: Specimen #1 Performed By: #### L 100.0100, L500.2500, L501.4020 #### [facility] [address] [place], [address] GFR/1.73 sq M.predicted among non-blacks MDRD (S/P/Bld) [Vol rate/Area] 98 mL/min/{1.73_m2} Normal >60 [facility] Comment on above: Order Comment: Comme nts: Specimen #1 Result Comment: Non- GFR Calc Performed By: #### L 100.0100, L500.2500, L501.4020 #### [facility] [address] [place], [address] Glucose [Mass/Vol] 91 mg/dL Normal 74-106 [facility] Comment on above: Order Comment: Comme nts: Specimen #1 Result Comment: Frederick walker note revised GLUCOSE reference range effective 2017. Performed By: #### L 100.0100, L500.2500, L501.4020 #### [facility] [address] [place], [address] Potassium [Moles/Vol] 3.5 mmol/L Normal 3.5-5.1 [facility] Comment on above: Order Comment: Comme nts: Specimen #1 Performed By: #### L 100.0100, L500.2500, L501.4020 #### [facility] [address] [place], [address] Sodium [Moles/Vol] 140 mmol/L Normal 136-145 [facility] Comment on above: Order Comment: Comme nts: Specimen #1 Performed By: #### L 100.0100, L500.2500, L501.4020 #### [facility] [address] [place], [address] Urea nitrogen [Mass/Vol] 9 mg/dL Normal 7-18 [facility] Comment on above: Order Comment: Comme nts: Specimen #1 Performed By: #### L 100.0100, L500.2500, L501.4020 #### [facility] [address] [place], [address] L501.4020on 04-02-2021 TROPONIN-I HS < 3 Low 3.0-54.0 [facility] Comment on above: Order Comment: Comme nts: Specimen #1 Result Comment: Plea se Note: New Test Units and Gender Specific Reference Ranges. For more information see Policy Stat Procedure Arabi High Sensitivity Troponin (TNIH) and attachments. Performed By: #### L 100.0100, L500.2500, L501.4020 #### [facility] [address] [place], [address] 12 Lead EKGon 04-01-2021 12 Lead EKG [facility] [address] [place] [address] 12 Lead EKG 04/01/21 1839 MR#: [id number] Acct: [id number] Name: ABIMBOLA HDZ Rep #: [id number] : 1995 25 From: Abner Hoskins MD Attending Dr: Status: DEP ER Ordering Dr: Provider,Ed P. Date: 04/01/21 Location: ED Sex: F C Admitted: Test Reason : CP Blood Pressure : / mmHG Vent. Rate : 081 BPM Atrial Rate : 081 BPM P-R Int : 136 ms QRS Dur : 092 ms QT Int : 368 ms P-R-T Axes : 036 057 -07 degrees QTc Int : 427 ms Normal sinus rhythm Nonspecific T wave abnormality Abnormal ECG Confirmed by DOROTHY CONNER, ABNER ([id number]), news editor MARLENE JANSEN ([id number]) on 04/02/2021 11:39:32 AM Referred By: DULCE Confirmed By:ABNER HOSKINS MD 04/02/21 1139 Date Abner Hoskins MD CC: Dr. Chris Esteban MD; ED PHYSICIAN PROVIDER; No Primary Care Physician Signed Normal [facility] CBC W/Diff, Automatedon 12-0 -2020 Absolute Lymph 1.66 X10 3/uL Normal 0.83-4.51 [facility] Comment on above: Performed By: #### L 100.0100, L500.2500, L501.4020 #### [facility] [address] [place], [address] Absolute Neut 3.6 X10 3/uL Normal 2.0-7.7 [facility] Comment on above: Performed By: #### L 100.0100, L500.2500, L501.4020 #### [facility] [address] [place], [address] Basophils/100 WBC (Bld) 0.7 % Normal 0-1 [facility] Comment on above: Performed By: #### L 100.0100, L500.2500, L501.4020 #### [facility] [address] [place], [address] Eosinophils/100 WBC (Bld) 2.6 % Normal 0-5 [facility] Comment on above: Performed By: #### L 100.0100, L500.2500, L501.4020 #### [facility] [address] [place], [address] Erythrocyte distribution width (RBC) [Ratio] 13.3 % Normal 11.6-14.6 [facility] Comment on above: Performed By: #### L 100.0100, L500.2500, L501.4020 #### [facility] [address] [place], [address] Hematocrit (Bld) [Volume fraction] 39.8 % Normal 37-47 [facility] Comment on above: Performed By: #### L 100.0100, L500.2500, L501.4020 #### [facility] [address] [place], [address] Hemoglobin (Bld) [Mass/Vol] 12.8 g/dL Normal 12.0-15.0 [facility] Comment on above: Performed By: #### L 100.0100, L500.2500, L501.4020 #### [facility] [address] [place], [address] IG% 0.300 Normal 0.0-0.9 [facility] Comment on above: Result Comment: IG% - Immature Granulocytes (promyelocytes, myelocytes and metamyelocytes) > 1% indicates that a LEFT SHIFT is Present. Performed By: #### L 100.0100, L500.2500, L501.4020 #### [facility] [address] [place], [address] Lymphocytes/100 WBC (Bld) 27.4 % Normal 19-41 [facility] Comment on above: Performed By: #### L 100.0100, L500.2500, L501.4020 #### [facility] [address] [place], [address] MCH (RBC) [Entitic mass] 28.0 pg Normal 27.0-32.0 [facility] Comment on above: Performed By: #### L 100.0100, L500.2500, L501.4020 #### [facility] [address] [place], [address] MCHC (RBC) [Mass/Vol] 32.2 g/dL Normal 32-36 [facility] Comment on above: Performed By: #### L 100.0100, L500.2500, L501.4020 #### [facility] [address] [place], [address] MCV (RBC) [Entitic vol] 87.1 fL Normal 81-99 [facility] Comment on above: Performed By: #### L 100.0100, L500.2500, L501.4020 #### [facility] [address] [place], [address] Monocytes/100 WBC (Bld) 9.7 % Normal 0-10 [facility] Comment on above: Performed By: #### L 100.0100, L500.2500, L501.4020 #### [facility] [address] [place], [address] Neutrophils/100 WBC (Bld) 59.3 % Normal 47-70 [facility] Comment on above: Performed By: #### L 100.0100, L500.2500, L501.4020 #### [facility] [address] [place], [address] Nucleated RBC (Bld) [#/Vol] 0 10*3/uL Normal 0-5 [facility] Comment on above: Performed By: #### L 100.0100, L500.2500, L501.4020 #### [facility] [address] [place], [address] Platelet mean volume (Bld) [Entitic vol] 9.9 fL Normal 6.2-12.0 [facility] Comment on above: Performed By: #### L 100.0100, L500.2500, L501.4020 #### [facility] [address] [place], [address] Platelets (Bld) [#/Vol] 305 10*3/uL Normal 150-450 [facility] Comment on above: Performed By: #### L 100.0100, L500.2500, L501.4020 #### [facility] [address] [place], [address] RBC (Bld) [#/Vol] 4.57 10*6/uL Normal 4.2-5.4 [facility] Comment on above: Performed By: #### L 100.0100, L500.2500, L501.4020 #### [facility] [address] [place], [address] RDW SD 42.1 fl Normal 35.1-43.9 [facility] Comment on above: Performed By: #### L 100.0100, L500.2500, L501.4020 #### [facility] [address] [place], [address] WBC (Bld) [#/Vol] 6.1 10*3/uL Normal 4.4-11.0 [facility] Comment on above: Performed By: #### L 100.0100, L500.2500, L501.4020 #### [facility] [address] [place], [address] Chest 1 View (Portable)on Chest 1 View (Portable) [facility] Services [address] [place] [address] Chest 1 View (Portable) MR#: [id number] Acct: [id number] Name: ABIMBOLA HDZ Rep #: [id number] : 1995 F 25 From: Gerber Mora MD PCP: Care Physician,No Primary Status: PRE ER Study: Chest 1 View (Portable) Date of Exam: 04/01/21 Exam# [id number] Ordering Dr: Chris Esteban MD EXAM: XR CHEST, 1 VIEW CLINICAL INDICATION: chest pain TECHNIQUE: Frontal view of the chest. This report was created using [employer] report generation technology. COMPARISON: Chest x-ray 12/29/2020. FINDINGS: LUNGS AND PLEURAL SPACES: Unremarkable. No consolidation or edema. No pneumothorax. No effusion. HEART: Unremarkable. Cardiac silhouette not enlarged. MEDIASTINUM: Central airways and mediastinal contour are unremarkable. BONES/JOINTS: Unremarkable. SOFT TISSUES: Unremarkable. RAD/Chest 1 View (Portable) IMPRESSION: No radiographic evidence of acute cardiopulmonary disease. Electronically Signed: Gerber Mora MD at 21:35 EST Tel , Service support , CC: Dr. Chris Esteban MD; No Primary Care Physician Staff Physical Therapist: Signed Normal [facility] Emergency Department Summary on 04-01-2021 Emergency Department Summary [facility] Medical Records Department [address] [place] [address] Emergency Department Summary 04/01/21 MR#: [id number] Acct: [id number] Name: ABIMBOLA HDZ Rep #: [id number] : 1995 25 From: Chris Esteban MD PCP: Care Physician,No Primary Status:PRE ER Location: ED HPI History of Present Illness Chief Complaint: Chest Pain Informant: patient Onset/Context/Timing Onset: Today Activity at onset: sudden Timing: Intermittent (Lasting seconds) Quality: Positive for Pressure and Sharp Location: Substernal Current Severity: Gone Maximum Severity: Moderate Worsened By: Nothing Relieved By: Nothing Associated Symptoms: Positive for - (There is no radiation.); Negative for Nausea, Vomiting, Diaphoresis, Dyspnea, Cough, Fever, Lightheadedness, Acid Reflux and Palpitations Narrative Narrative: Patient is a 25-year-old female who presents with intermittent sharp central chest pain that occurred after eating spicy food. She denies history of reflux, peptic ulcer disease or hiatal hernia. She denies intolerance to greasy or fried foods. She denies family history of cholelithiasis. Patient did not take anything for the pain. Patient is alert control pills. She has no symptoms or complaints presently Prior Similar Symptoms: No CVD Risk Factors: Negative for Hypertension, Diabetes, Hypercholesterolemia, Family History 1' and Smoking PE Risk Factors: Negative for Recent Travel/Surgery, Recent Immobilization, Prior DVT or PE, Cancer and OCP + Smoking + >/=35 TAD Risk Factors: Negative for Marfan's Syndrome, Hypertension and Family History PFSH PFSH Home Medications vit,[id number] [Prenatabs FA] 1 tab PO DAILY MDD 06/05/14 [History Last Taken 05/29/19] acetaminophen 1,000 mg PO Q8H PRN PRN tab 05/31/19 [Rx Last Taken Unknown] ibuprofen 600 mg PO Q6H PRN PRN tab 05/31/19 [Rx Last Taken Unknown] sulfamethoxazole-trimeth oprim [Bactrim DS] 1 tab PO BID #6 tab 12/30/20 [Rx Last Taken Unknown] Allergy/AdvReac Type Severity Reaction Status Date / Time amoxicillin Allergy Rash Verified 04/01/21 18:33 azithromycin Allergy Rash Verified 04/01/21 18:33 cefprozil [From Cefzil] Allergy Rash Verified 04/01/21 18:33 Surgical History H/O wisdom tooth extraction Social History (Updated 04/01/21 @ 21:[address] Chris Esteban MD) household members: none Smoking Status: Never smoker alcohol intake: current alcohol intake frequency: holidays/special occasions only substance use type: does not use ROS ROS ED Constitutional Constitutional ED: Denies chills, fever(s), subjective or sweats Eyes Eyes: Reports none ENT ENT ED: Denies ear pain, rhinorrhea or sore throat Cardiovascular Cardiovascular: Reports as per HPI; Denies orthopnea or paroxysmal nocturnal dyspnea Respiratory/Chest Respiratory/Chest: Denies cough, dyspnea, dyspnea on exertion, orthopnea, paroxysmal nocturnal dyspnea or sputum Gastrointestinal Gastrointestinal: Denies abdominal pain, constipation, diarrhea, nausea or vomiting Genitourinary Genitourinary ED: Denies dysuria, hematuria or urinary frequency Musculoskeletal Musculoskeletal: Denies arthralgias, back pain, myalgias or neck pain Integumentary Denies abscess or rash Neurologic Neurologic: Denies headache(s) or weakness Endocrine Endocrinology: Denies polydipsia, polyphagia or polyuria Hematologic/Lymphatic Hematologic/Lymphatic: Denies easy bleeding or easy bruising Allergic/Immunologic Allergic/Immunologic ED: Denies mouth swelling or urticaria EXAM Physical Exam Const Vital Signs: 04/01/21 18:31 Temperature 97.2 F L Temperature Source Temporal Pulse Rate 86 Respiratory Rate 15 Blood Pressure 153/74 H Blood Pressure Mean 100 Pulse Ox 98 Oxygen Delivery Method Room Air Positive well nourished and well developed General Appearance ED: well developed and NAD; Negative for pallor HEENT Reports moist mucous membranes normocephalic and atraumatic Eyes PERRL and EOMs intact bilaterally General Eye ED: Negative for pale conjunctiva or scleral icterus Neck no lymphadenopathy, supple and no JVD Chest Wall palpation of chest normal Resp normal respiratory effort Effort and Inspection: respiratory distress Cardio regular rate, regular rhythm, S1 normal heart sound and S2 normal heart sound GI normal to inspection, nondistended, normoactive bowel sounds, soft to palpation and non-tender; Negative for hepatosplenomegaly GI Narrative: Negative clinical Wild sign Back/Spine no CVA tenderness and no thoracic nor lumbar tenderness Cervical Spine: Negative for cervical spine tenderness Extremity normal to inspection Extremity Narrative: There is no asymmetry, swelling, discoloration, le (more content not included)... Normal [facility] Basic Metabolic Profile (BMP )on 12-30-2020 BUN/CRE 15.5 RATIO Normal 10-20 [facility] Comment on above: Performed By: #### L 500.2500, L100.0100, L500.3400, L501.2450 ####[facility] [address] [place], [address] CA,Total 9.4 mg/dL Normal 8.5-10.1 [facility] Comment on above: Performed By: #### L 500.2500, L100.0100, L500.3400, L501.2450 ####[facility] [address] [place], [address] Chloride [Moles/Vol] 108 mmol/L High 98-107 [facility] Comment on above: Performed By: #### L 500.2500, L100.0100, L500.3400, L501.2450 ####[facility] [address] [place], [address] CO2 [Moles/Vol] 28.0 mmol/L Normal 21.0-32.0 [facility] Comment on above: Performed By: #### L 500.2500, L100.0100, L500.3400, L501.2450 ####[facility] [address] [place], [address] Creatinine [Mass/Vol] 0.84 mg/dL Normal 0.55-1.02 [facility] Comment on above: Result Comment: The validity of the calculated GFR GFRAA in patients over 70 years has not been determined. Clinical correlation is essential. Performed By: #### L 500.2500, L100.0100, L500.3400, L501.2450 ####[facility] [address] [place], [address] ECRCL 80.97 ml/min Normal [facility] Comment on above: Performed By: #### L 500.2500, L100.0100, L500.3400, L501.2450 ####[facility] [address] [place], [address] EST GFR - AA 106 mL/min Normal >60 [facility] Comment on above: Result Comment: Afri can Trinidadian GFR Calc Performed By: #### L 500.2500, L100.0100, L500.3400, L501.2450 ####[facility] [address] [place], [address] GAP 3 Low 5-15 [facility] Comment on above: Performed By: #### L 500.2500, L100.0100, L500.3400, L501.2450 ####[facility] [address] [place], [address] GFR/1.73 sq M.predicted among non-blacks MDRD (S/P/Bld) [Vol rate/Area] 88 mL/min/{1.73_m2} Normal >60 [facility] Comment on above: Result Comment: Non- GFR Calc Performed By: #### L 500.2500, L100.0100, L500.3400, L501.2450 ####[facility] [address] [place], [address] Glucose [Mass/Vol] 79 mg/dL Normal 74-106 [facility] Comment on above: Result Comment: Frederick walker note revised GLUCOSE reference range effective 2017. Performed By: #### L 500.2500, L100.0100, L500.3400, L501.2450 ####[facility] [address] [place], [address] Potassium [Moles/Vol] 3.3 mmol/L Low 3.5-5.1 [facility] Comment on above: Performed By: #### L 500.2500, L100.0100, L500.3400, L501.2450 ####[facility] [address] [place], [address] Sodium [Moles/Vol] 139 mmol/L Normal 136-145 [facility] Comment on above: Performed By: #### L 500.2500, L100.0100, L500.3400, L501.2450 ####[facility] [address] [place], [address] Urea nitrogen [Mass/Vol] 13 mg/dL Normal 7-18 [facility] Comment on above: Performed By: #### L 500.2500, L100.0100, L500.3400, L501.2450 ####[facility] [address] [place], [address] CBC W/Diff, Automatedon 09-0 -2020 Absolute Lymph 2.29 X10 3/uL Normal 0.83-4.51 [facility] Comment on above: Performed By: #### L 500.2500, L100.0100, L500.3400, L501.2450 #### [facility] [address] [place], [address] Absolute Neut 4.2 X10 3/uL Normal 2.0-7.7 [facility] Comment on above: Performed By: #### L 500.2500, L100.0100, L500.3400, L501.2450 #### [facility] [address] [place], [address] Basophils/100 WBC (Bld) 0.9 % Normal 0-1 [facility] Comment on above: Performed By: #### L 500.2500, L100.0100, L500.3400, L501.2450 #### [facility] [address] [place], [address] Eosinophils/100 WBC (Bld) 1.4 % Normal 0-5 [facility] Comment on above: Performed By: #### L 500.2500, L100.0100, L500.3400, L501.2450 #### [facility] [address] [place], [address] Erythrocyte distribution width (RBC) [Ratio] 13.3 % Normal 11.6-14.6 [facility] Comment on above: Performed By: #### L 500.2500, L100.0100, L500.3400, L501.2450 #### [facility] [address] [place], [address] Hematocrit (Bld) [Volume fraction] 41.5 % Normal 37-47 [facility] Comment on above: Performed By: #### L 500.2500, L100.0100, L500.3400, L501.2450 #### [facility] [address] [place], [address] Hemoglobin (Bld) [Mass/Vol] 13.5 g/dL Normal 12.0-15.0 [facility] Comment on above: Performed By: #### L 500.2500, L100.0100, L500.3400, L501.2450 #### [facility] [address] [place], [address] IG% 0.400 Normal 0.0-0.9 [facility] Comment on above: Result Comment: IG% - Immature Granulocytes (promyelocytes, myelocytes and metamyelocytes) > 1% indicates that a LEFT SHIFT is Present. Performed By: #### L 500.2500, L100.0100, L500.3400, L501.2450 #### [facility] [address] [place], [address] Lymphocytes/100 WBC (Bld) 31.0 % Normal 19-41 [facility] Comment on above: Performed By: #### L 500.2500, L100.0100, L500.3400, L501.2450 #### [facility] [address] [place], [address] MCH (RBC) [Entitic mass] 28.1 pg Normal 27.0-32.0 [facility] Comment on above: Performed By: #### L 500.2500, L100.0100, L500.3400, L501.2450 #### [facility] [address] [place], [address] MCHC (RBC) [Mass/Vol] 32.5 g/dL Normal 32-36 [facility] Comment on above: Performed By: #### L 500.2500, L100.0100, L500.3400, L501.2450 #### [facility] [address] [place], [address] MCV (RBC) [Entitic vol] 86.5 fL Normal 81-99 [facility] Comment on above: Performed By: #### L 500.2500, L100.0100, L500.3400, L501.2450 #### [facility] [address] [place], [address] Monocytes/100 WBC (Bld) 9.7 % Normal 0-10 [facility] Comment on above: Performed By: #### L 500.2500, L100.0100, L500.3400, L501.2450 #### [facility] [address] [place], [address] Neutrophils/100 WBC (Bld) 56.6 % Normal 47-70 [facility] Comment on above: Performed By: #### L 500.2500, L100.0100, L500.3400, L501.2450 #### [facility] [address] [place], [address] Nucleated RBC (Bld) [#/Vol] 0 10*3/uL Normal 0-5 [facility] Comment on above: Performed By: #### L 500.2500, L100.0100, L500.3400, L501.2450 #### [facility] [address] [place], [address] Platelet mean volume (Bld) [Entitic vol] 9.8 fL Normal 6.2-12.0 [facility] Comment on above: Performed By: #### L 500.2500, L100.0100, L500.3400, L501.2450 #### [facility] [address] [place], [address] Platelets (Bld) [#/Vol] 327 10*3/uL Normal 150-450 [facility] Comment on above: Performed By: #### L 500.2500, L100.0100, L500.3400, L501.2450 #### [facility] [address] [place], [address] RBC (Bld) [#/Vol] 4.80 10*6/uL Normal 4.2-5.4 [facility] Comment on above: Performed By: #### L 500.2500, L100.0100, L500.3400, L501.2450 #### [facility] [address] [place], [address] RDW SD 41.4 fl Normal 35.1-43.9 [facility] Comment on above: Performed By: #### L 500.2500, L100.0100, L500.3400, L501.2450 #### [facility] [address] [place], [address] WBC (Bld) [#/Vol] 7.4 10*3/uL Normal 4.4-11.0 [facility] Comment on above: Performed By: #### L 500.2500, L100.0100, L500.3400, L501.2450 #### [facility] [address] [place], [address] Chest PA and Lateralon 12-30 Chest PA and Lateral [facility] [address] [place] [address] Chest PA and Lateral MR#: [id number] Acct: [id number] Name: ABIMBOLA HDZ Rep #: [id number] : 1995 F 25 From: Sharath hutchison MD PCP: Care Physician,No Primary Status: [facility] ER Study: Chest PA and Lateral Date of Exam: 12/29/20 Exam# [id number] Ordering Dr: Saima Maddox MD STUDY: X-RAY CHEST REASON FOR EXAM: Female, 25 years old. lower rib pain, sob TECHNIQUE: PA and lateral COMPARISON: None. FINDINGS: The lungs are clear and expanded. There is no demonstrated pleural abnormality. Normal size heart. Normal mediastinum and ebony. Normal visualized pulmonary arteries. Normal visualized aortic arch and descending thoracic aorta. Normal visualized thoracic spine. Normal visualized ribs, clavicles, and shoulders. There is no demonstrated abnormality of the visualized soft tissue structures of the upper abdomen. RAD/Chest PA and Lateral IMPRESSION: Negative x-ray examination of the chest. Electronically Signed: Ricardo Gannon MD at 0:07 EDT Tel , Service support , CC: Dr. Saima Maddox MD; No Primary Care Physician Staff Physical Therapist: Signed Normal [facility] Emergency Department Summary on 12-30-2020 Emergency Department Summary [facility] Medical Records Department [address] [place] [address] Emergency Department Summary 12/29/20 MR#: [id number] Acct: [id number] Name: ABIMBOLA HDZ Rep #: [id number] : 1995 25 From: Saima Maddox MD PCP: Care Physician,No Primary Status:DEP ER Location: ED HPI History of Present Illness Chief Complaint: Other, Pain/Inj Informant: patient Onset/Context/Timing Onset: Weeks Context: Gradual Onset Timing: Waxes and wanes Current Severity: Mild Maximum Severity: Moderate Narrative Narrative: Patient presents secondary to abdominal pain. She states 2 weeks ago she noted pain under her left ribs that seem to be worse after she would eat, especially a lot of junk food. She a lso developed pain on the right groin at that time. She states she did note that the pain was better after she would work out. Today she has reproducible tenderness over the lower ribs bilaterally. She thought this was lymph nodes. She does report some mild shortness of breath but no cough. She had some slight chest tightness and states that she felt like she was having a panic attack because of the pain. She denies any significant past medical or surgical history. She denies any possibility of . PFSH PFSH no medical history Home Medications vit,[id number] [Prenatabs FA] 1 tab PO DAILY MDD 06/05/14 [History Last Taken 05/29/19] acetaminophen 1,000 mg PO Q8H PRN PRN tab 05/31/19 [Rx Last Taken Unknown] ibuprofen 600 mg PO Q6H PRN PRN tab 05/31/19 [Rx Last Taken Unknown] sulfamethoxazole-trimeth oprim [Bactrim DS] 1 tab PO BID #6 tab 12/30/20 [Rx Last Taken Unknown] Allergy/AdvReac Type Severity Reaction Status Date / Time amoxicillin Allergy Rash Verified 12/29/20 22:02 azithromycin Allergy Rash Verified 12/29/20 22:02 cefprozil [From Cefzil] Allergy Rash Verified 12/29/20 22:02 Surgical History H/O wisdom tooth extraction Social History Smoking Status: Never smoker ROS ROS ED Constitutional Constitutional ED: Denies chills or fever(s) Eyes Eyes: Denies change in vision ENT ENT ED: Denies sore throat Cardiovascular Cardiovascular: Reports chest pain Respiratory/Chest Respiratory/Chest: Reports dyspnea; Denies cough Gastrointestinal Gastrointestinal: Reports abdominal pain; Denies diarrhea, nausea or vomiting Genitourinary Genitourinary ED: Denies dysuria or hematuria Musculoskeletal Musculoskeletal: Denies back pain Integumentary Denies rash Neurologic Neurologic: Denies headache(s) or weakness Psychiatric Psychiatric: Denies anxiety or depression Endocrine Endocrinology: Denies polydipsia or polyuria Allergic/Immunologic Allergic/Immunologic ED: Denies urticaria EXAM Physical Exam Const Vital Signs: 12/29/20 22:03 12/29/20 23:45 Temperature 98 F Temperature Source Temporal Pulse Rate 88 Respiratory Rate 18 Respiratory Effort Normal Non-Labored Respiratory Pattern Normal Blood Pressure 130/67 H Blood Pressure Mean 88 Pulse Ox 98 Oxygen Delivery Method Room Air Positive well nourished and well developed General Appearance ED: well developed HEENT Reports normocephalic and head/scalp atraumatic Eyes PERRL and EOMs intact bilaterally Neck supple Chest Wall inspection of chest normal and palpation of chest normal Resp normal respiratory effort and clear to auscultation bilaterally Cardio regular rate and regular rhythm GI normal to inspection, nondistended, normoactive bowel sounds and non-tender Palpation: soft Extremity normal to inspection Neuro oriented x3 and no sensory deficits noted Sensorium / Orientation: alert Motor Exam: strength 5/5 throughout Psych mental status grossly normal Skin no rashes or lesions noted MDM MDM MDM Narrative Medical decision making narrative: Patient is given dose of Toradol. Lab work and urinalysis obtained. Lab Data Attestation: I reviewed the patient's lab results. Labs: Laboratory Results - last 24 hr 12/29/20 12/29/20 12/29/20 23:10 23:10 23:35 WBC 7.4 RBC 4.80 Hgb 13.5 Hct 41.5 MCV 86.5 MCH 28.1 MCHC 32.5 RDW Std Deviation 41.4 RDW Coeff of Jose M 13.3 Plt Count 327 MPV 9.8 Immature Gran % (Auto) 0.400 Neut % (Auto) 56.6 Lymph % (Auto) 31.0 [place] % (Auto) 9.7 Eos % (Auto) 1.4 Baso % (Auto) 0.9 Absolute Neuts (auto) 4.2 Absolute Lymphs (auto) 2.29 Nucleated RBC % 0 Sodium 139 Potassium 3.3 L Chloride 108 H Carbon Dioxide 28.0 Anion Gap 3 L BUN 13 Creatinine 0.84 Estim Creat Clear Calc 80.97 Est GFR (MDRD) Af Amer 106 Est GFR (MDRD) Non-Af 88 (more content not included)... Normal [facility] Lipaseon 12-30-2020 Lipase [Catalytic activity/Vol] 142 U/L Normal 73-393 [facility] Comment on above: Performed By: #### L 500.2500, L100.0100, L500.3400, L501.2450 ####[facility] [address] [place], [address] Liver Profileon 12-30-2020 Albumin [Mass/Vol] 3.5 g/dL Normal 3.2-5.0 [facility] Comment on above: Performed By: #### L 500.2500, L100.0100, L500.3400, L501.2450 ####[facility] [address] [place], [address] ALK P 70 U/L Normal 45-117 [facility] Comment on above: Performed By: #### L 500.2500, L100.0100, L500.3400, L501.2450 ####[facility] [address] [place], [address] ALT [Catalytic activity/Vol] 33 U/L Normal 13-56 [facility] Comment on above: Performed By: #### L 500.2500, L100.0100, L500.3400, L501.2450 ####[facility] [address] [place], [address] AST [Catalytic activity/Vol] 21 U/L Normal 15-37 [facility] Comment on above: Performed By: #### L 500.2500, L100.0100, L500.3400, L501.2450 ####[facility] [address] [place], [address] Bilirubin [Mass/Vol] 0.30 mg/dL Normal 0.20-1.00 [facility] Comment on above: Result Comment: For patients on eltrombopag therapy, use of Dimension [place] TBIL is not recommended. Performed By: #### L 500.2500, L100.0100, L500.3400, L501.2450 ####[facility] [address] [place], [address] Bilirubin.direct [Mass/Vol] 0.09 mg/dL Normal 0.00-0.30 [facility] Comment on above: Performed By: #### L 500.2500, L100.0100, L500.3400, L501.2450 ####[facility] [address] [place], [address] Globulin (S) [Mass/Vol] 5.2 g/dL High 2.2-4.2 [facility] Comment on above: Performed By: #### L 500.2500, L100.0100, L500.3400, L501.2450 ####[facility] [address] [place], [address] T PROT 8.7 g/dL High 6.4-8.2 [facility] Comment on above: Performed By: #### L 500.2500, L100.0100, L500.3400, L501.2450 ####[facility] [address] [place], [address] Urinalysis, Completeon 12-30 BACTERIA 1+ /hpf Normal None Seen [facility] Comment on above: Order Comment: CLEAN CATCH Performed By: #### L 400.0001 #### [facility] [address] [place], [address] EPI,SQUAMOUS 0-5 SEEN Normal 5-10 [facility] Comment on above: Order Comment: CLEAN CATCH Performed By: #### L 400.0001 #### [facility] [address] [place], [address] WBC 5-10 SEEN Normal 0-5 [facility] Comment on above: Order Comment: CLEAN CATCH Performed By: #### L 400.0001 #### [facility] [address] [place], [address] Mucus Ql (Urine sed) 0 SEEN Normal [facility] Comment on above: Order Comment: CLEAN CATCH Performed By: #### L 400.0001 #### [facility] [address] [place], [address] RBC 0 SEEN Normal 0-5 [facility] Comment on above: Order Comment: CLEAN CATCH Performed By: #### L 400.0001 #### [facility] [address] [place], [address] Vital Signs Date Time Vital Sign Value Performing Clinician Raciel sierra 09-29-2024 12:29-0400 Body mass index (BMI) [Ratio] 35.1 kg/m2 Clark Hoyos APRN.CNP Work Phone: [facility] [place] 09-29-2024 12:29-0400 Body temperature 98.29 [degF] Clark Hoyos APRN.POLICE RADIO DISPATCHER Work Phone: [facility] [place] 09-29-2024 12:29-0400 Body weight 87.4 kg Clark Hoyos APRN.CNP Work Phone: [facility] [place] 09-29-2024 12:29-0400 Diastolic blood pressure 70 mm[Hg] Clark Hoyos APRN.CNP Work Phone: [facility] [place] 09-29-2024 12:29-0400 Heart rate 82 /min Clark Hoyos APRN.POLICE RADIO DISPATCHER Work Phone: [facility] [place] 09-29-2024 12:29-0400 Respiratory rate 22 /min Clark Hoyos CHEMIST ASSISTANT.POLICE RADIO DISPATCHER Work Phone: [facility] [place] 09-29-2024 12:29-0400 SaO2% (BldA) [Mass fraction] 97 % Clark Hoyos CHEMIST ASSISTANT.POLICE RADIO DISPATCHER Work Phone: [facility] [place] 09-29-2024 12:29-0400 Systolic blood pressure 100 mm[Hg] Clark Hoyos CHEMIST ASSISTANT.POLICE RADIO DISPATCHER Work Phone: [facility] [place] 03-26-2023 11:02-0500 Body temperature 102.4 [degF] Krislyn Aberegg PA Work Phone: [facility] [place] 03-26-2023 11:02-0500 Body weight 101.52 kg Krislyn Aberegg PA Work Phone: [facility] [place] 03-26-2023 11:02-0500 Diastolic blood pressure 64 mm[Hg] Krislyn Aberegg PA Work Phone: [facility] [place] 03-26-2023 11:02-0500 Heart rate 107 /min Krislyn Aberegg PA Work Phone: [facility] [place] 03-26-2023 11:02-0500 Respiratory rate 18 /min Krislyn Aberegg PA Work Phone: [facility] [place] 03-26-2023 11:02-0500 SaO2% (BldA) [Mass fraction] 97 % Krislyn Aberegg PA Work Phone: [facility] [facility] [place] 03-26-2023 11:02-0500 Systolic blood pressure 122 mm[Hg] Krislyn Aberegg PA Work Phone: [facility] [place] 12-20-2022 12:00-0400 Body height 157.8 cm Joaquina German CHEMIST ASSISTANT.POLICE RADIO DISPATCHER Work Phone: [facility] [place] 12-20-2022 12:00-0400 Body weight 103.6 kg Joaquina German CHEMIST ASSISTANT.POLICE RADIO DISPATCHER Work Phone: [facility] [place] 12-20-2022 12:00-0400 Diastolic blood pressure 74 mm[Hg] Joaquina Podlogar CHEMIST ASSISTANT.POLICE RADIO DISPATCHER Work Phone: [facility] [place] 12-20-2022 12:00-0400 Heart rate 71 /min Joaquina Podlogar CHEMIST ASSISTANT.POLICE RADIO DISPATCHER Work Phone: [facility] [place] 12-20-2022 12:00-0400 Respiratory rate 18 /min Joaquina Podlogar CHEMIST ASSISTANT.POLICE RADIO DISPATCHER Work Phone: [facility] [place] 12-20-2022 12:00-0400 SaO2% (BldA) [Mass fraction] 98 % Joaquina Podlogar CHEMIST ASSISTANT.POLICE RADIO DISPATCHER Work Phone: [facility] [place] 12-20-2022 12:00-0400 Systolic blood pressure 118 mm[Hg] Joaquina Podlogar CHEMIST ASSISTANT.POLICE RADIO DISPATCHER Work Phone: [facility] [place] 08-04-2022 14:27-0400 Body height 159.4 cm Bere Damion CHEMIST ASSISTANT.POLICE RADIO DISPATCHER Work Phone: [facility] [place] 08-04-2022 14:27-0400 Body weight 98.88 kg Bere Damion CHEMIST ASSISTANT.POLICE RADIO DISPATCHER Work Phone: [facility] [place] 08-04-2022 14:27-0400 Diastolic blood pressure 66 mm[Hg] Bere Canterbury CHEMIST ASSISTANT.POLICE RADIO DISPATCHER Work Phone: [facility] [place] 08-04-2022 14:27-0400 Systolic blood pressure 122 mm[Hg] Bere Canterbury CHEMIST ASSISTANT.POLICE RADIO DISPATCHER Work Phone: [facility] [place] 10-04-2021 18:39-0400 Body temperature 99.19 [degF] [facility] CHEMIST ASSISTANT.POLICE RADIO DISPATCHER Work Phone: [facility] [place] 10-04-2021 18:39-0400 Body weight 84.37 [facility] CHEMIST ASSISTANT.POLICE RADIO DISPATCHER Work Phone: [facility] [place] 10-04-2021 18:39-0400 Diastolic blood pressure 68 mm[Hg] Clark Pendlebury CHEMIST ASSISTANT.POLICE RADIO DISPATCHER Work Phone: [facility] [place] 10-04-2021 18:39-0400 Heart rate 76 /min [facility] CHEMIST ASSISTANT.POLICE RADIO DISPATCHER Work Phone: [facility] [place] 10-04-2021 18:39-0400 Respiratory rate 16 /min [facility] CHEMIST ASSISTANT.POLICE RADIO DISPATCHER Work Phone: [facility] [place] 10-04-2021 18:39-0400 SaO2% (BldA) [Mass fraction] 99 % [facility] CHEMIST ASSISTANT.POLICE RADIO DISPATCHER Work Phone: [facility] [place] 10-04-2021 18:39-0400 Systolic blood pressure 116 mm[Hg] [facility]ildardo [facility] CHEMIST ASSISTANT.POLICE RADIO DISPATCHER Work Phone: [facility] [place] Encounters Encounter Date Encounter Type Care Provider Facility Start: 09-29-2024 End: 09-29-2024 Office [facility] CHEMIST ASSISTANT.POLICE RADIO DISPATCHER Work Phone: [facility] Comment on above: Acute otitis externa of right ear, unspecified type (Primary Dx) Start: 09-29-2024 End: 09-29-2024 ambulatory [facility] Facility:[facility] Start: 03-26-2023 End: 03-26-2023 Patient encounter procedure Zen BAXTER Work Phone: [facility] Comment on above: Strep pharyngitis (P rimary Dx); Sore throat Start: 12-20-2022 End: 12-20-2022 Patient encounter procedure Joaquina German APRN.POLICE RADIO DISPATCHER Work Phone: [facility] Comment on above: Encounter for medica l examination to establish care (Primary Dx); Screening for hyperlipidemia; Palpitations; History of anemia; Missed period; Obesity, Class III, BMI >= 40 Start: 12-20-2022 End: 12-20-2022 Patient encounter status Joaquina German APRN.POLICE RADIO DISPATCHER Work Phone: [facility] [place] Work Phone: Start: 08-04-2022 End: 08-04-2022 Patient encounter procedure Bere Bruno CHEMIST ASSISTANT.POLICE RADIO DISPATCHER Work Phone: OB/Gynecology Comment on above: Encounter for gyneco logical examination (general) (routine) without abnormal findings (Primary Dx); Screening for cervical cancer; Encounter for surveillance of contraceptive pills; Fibrocystic breast changes, left Start: 08-04-2022 End: 08-04-2022 Patient encounter status Bere Bruno SAMUEL.LOLA Work Phone: OB/Gynecology Start: 10-04-2021 End: 10-04-2021 Patient encounter procedure Clark Recinosterry CAPONE Work Phone: [facility] Comment on above: Contact dermatitis, unspecified contact dermatitis type, unspecified trigger (Primary Dx) Start: 10-04-2018 End: 08-08-2019 Patient requested procedure Clark Recinosterry BAKER.LOLA Work Phone: [facility] [place] Work Phone: Procedures Date Procedure Procedure Detail Performing Clinician Start: 03-26-2023 STREP A MOLECULAR (POC) Sander Joseph APRN.CNP Work Phone: Plan of Treatment Date Care Activity Detail Author Start: 02-21-2029 Urine microalbumin profile [facility] [place] Start: 08-04-2025 PAP TESTING PAP TESTING [facility] [place] Start: 08-04-2025 Screening for malign ant neoplasm of cervix Cervical Cancer Screening [facility] [place] Start: 12-23-2024 Influenza vaccination Influenz a Vaccine (Season Ended) [facility] [place] Start: 12-24-2023 Covid-19 Vaccine ( season) Covid-19 Vaccine ( season) [facility] [place] Start: 12-21-2023 COVID-19 VACCINE (#1) COVID-19 VACCI NE (#1) [facility] [place] Comment on above: Postponed from 10/02 (Declined at this time) Start: 12-23-2022 Influenza vaccination [facility] Start: 12-20-2022 End: 02-19-2023 CBC W Auto Differential panel - Blood CBC + DIFF Lab Routine Encounter for medical examination to establish care History of anemia Expected: 12/20/2022, Expires: 02/19/2023 [facility] Work Phone: Comment on above: Expected: 12/20/2022 , Expires: 02/19/2023 Start: 12-20-2022 End: 02-19-2023 Comprehensive metabolic 2000 panel - Serum or Plasma COMP METABOLIC PANEL Lab Routine Encounter for medical examination to establish care Expected: 12/20/2022, Expires: 02/19/2023 [facility] Work Phone: Comment on above: Expected: 12/20/2022 , Expires: 02/19/2023 Start: 12-20-2022 End: 02-19-2023 Lipid 1996 panel - Serum or Plasma LIPID PANEL BASIC Lab Routine Screening for hyperlipidemia Expected: 12/20/2022, Expires: 02/19/2023 [facility] Work Phone: Comment on above: Expected: 12/20/2022 , Expires: 02/19/2023 Start: 12-20-2022 End: 02-19-2023 Thyrotropin [Units/volume] in Serum or Plasma TSH BLD Lab Routine Palpitations Expected: 12/20/2022, Expires: 02/19/2023 [facility] Work Phone: Comment on above: Expected: 12/20/2022 , Expires: 02/19/2023 Start: 04-24-2022 DEPRESSION ASSESSMENT DEPRESSION ASS ESSMENT [facility] [place] Start: 12-23-2021 Influenza vaccination INFLUENZA (Sea son Ended) [facility] [place] Start: 10-05-2021 PAP TESTING PAP TESTING [facility] [place] Start: 2013 Anxiety Screening Anxiety Screening [facility] [place] Start: 2013 Depression Screening Depression Scre ening [facility] [place] Start: 2009 PEDS TO ADULT TRANSITION ANNUAL ASSESSMENT PEDS TO ADULT TRANSITION ANNUAL ASSESSMENT [facility] [place] Start: 2007 Adult depression screening assessment DEPRESSION SCREENING [facility] [place] Start: 2007 PEDS TO ADULT TRANSITION INITIAL DISCUSSION PEDS TO ADULT TRANSITION INITIAL DISCUSSION [facility] [place] Start: 2006 HPV VACCINE (1 - 2-d ose series) HPV VACCINE (1 - 2-dose series) [facility] [place] Start: 2000 COVID-19 VACCINE (#1) COVID-19 VACCI NE (#1) [facility] [place] Start: 1995 COVID-19 VACCINE (#1) COVID-19 VACCI NE (#1) [facility] [place] PAP TEST PAP TEST Lab Jimmy acosta Ordered: 08/04/2022 [facility] Work Phone: Comment on above: Ordered: 08/04/2022 End: 09-03-2023 US BREAST LTD LEFT US BREAST LTD LEFT Radiology Routine Fibrocystic breast changes, left 1 Occurrences starting 08/04/2022 until 09/03/2023 [facility] Work Phone: Comment on above: 1 Occurrences starti ng 08/04/2022 until 09/03/2023 [facility] Immunizations Immunization Date Immunization Notes Care Provider Isamar posadas 02-21-2019 tetanus toxoid, reduced diphtheria toxoid, and acellular pertussis vaccine, adsorbed Clark Pendlebury CHEMIST ASSISTANT.POLICE RADIO DISPATCHER Work Phone: [facility] [place] 01-24-2019 influenza, injectabl e, quadrivalent, contains preservative Clark Pendlebury CHEMIST ASSISTANT.POLICE RADIO DISPATCHER Work Phone: [facility] [place] 01-24-2019 influenza virus vaccine, unspecified formulation Zen BAXTER Work Phone: [facility] [place] 02-18-2014 influenza, seasonal, injectable Clark Pendlebury CHEMIST ASSISTANT.POLICE RADIO DISPATCHER Work Phone: [facility] [place] 10-16-2009 Meningococcal, MCV4, unspecified conjugate formulation(groups A, C, Y and W-135) Clark Pendlebury CHEMIST ASSISTANT.POLICE RADIO DISPATCHER Work Phone: [facility] [place] 10-16-2009 tetanus toxoid, reduced diphtheria toxoid, and acellular pertussis vaccine, adsorbed Clark Pendlebury CHEMIST ASSISTANT.POLICE RADIO DISPATCHER Work Phone: [facility] [place] 09-14-2000 diphtheria, tetanus toxoids and acellular pertussis vaccine Clark Pendlebury CHEMIST ASSISTANT.POLICE RADIO DISPATCHER Work Phone: [facility] [place] Work Phone: 09-14-2000 measles, mumps and rubella virus vaccine Clark Pendlebury CHEMIST ASSISTANT.POLICE RADIO DISPATCHER Work Phone: [facility] [place] Work Phone: 09-14-2000 poliovirus vaccine, inactivated Clark Pendlebury CHEMIST ASSISTANT.POLICE RADIO DISPATCHER Work Phone: [facility] [place] Work Phone: 06-26-1997 hepatitis B vaccine, adult dosage Clark Pendlebury CHEMIST ASSISTANT.POLICE RADIO DISPATCHER Work Phone: [facility] [place] Work Phone: 06-13-1997 DTaP-Haemophilus influenzae type b conjugate vaccine Clark Pendlebury CHEMIST ASSISTANT.POLICE RADIO DISPATCHER Work Phone: [facility] [place] Work Phone: 06-13-1997 trivalent poliovirus vaccine, live, oral Clark Pendlebury CHEMIST ASSISTANT.[facility] Work Phone: [facility] [place] Work Phone: 04-30-1996 hepatitis B vaccine, adult dosage Clark Pendlebury CHEMIST ASSISTANT.[facility] Work Phone: [facility] [place] Work Phone: 04-30-1996 measles, mumps and rubella virus vaccine Clark Pendlebury CHEMIST ASSISTANT.[facility] Work Phone: [facility] [place] Work Phone: 01-08-1996 hepatitis B vaccine, adult dosage Clark Pendlebury CHEMIST ASSISTANT.[facility] Work Phone: [facility] [place] Work Phone: 1995 DTaP-Haemophilus influenzae type b conjugate vaccine Clark Pendlebury CHEMIST ASSISTANT.POLICE RADIO DISPATCHER Work Phone: [facility] [place] Work Phone: 1995 DTaP-Haemophilus influenzae type b conjugate vaccine Clark Pendlebury CHEMIST ASSISTANT.POLICE RADIO DISPATCHER Work Phone: [facility] [place] Work Phone: 1995 trivalent poliovirus vaccine, live, oral Clark Pendlebury CHEMIST ASSISTANT.POLICE RADIO DISPATCHER Work Phone: [facility] [place] Work Phone: 1995 DTaP-Haemophilus influenzae type b conjugate vaccine Clark Pendlebury CHEMIST ASSISTANT.POLICE RADIO DISPATCHER Work Phone: [facility] [place] Work Phone: 1995 trivalent poliovirus vaccine, live, oral Clark Bloomjoaquim CHEMIST ASSISTANT.POLICE RADIO DISPATCHER Work Phone: [facility] [place] Work Phone: Payers Date Payer Category Payer Medicaid [id number] 2022 Medicaid [id number] 2014 Medicaid [employer] [facility] [id number] 2014-Present [phone] [address] [place] [address] Medicaid [id number] Social History Date Type Detail Facility Start: 08-04-2022 Tobacco smoking stat [facility] Never smoked tobacco [facility] [place] Work Phone: Start: 10-04-2021 End: 09-29-2024 Alcohol intake Ex-drinker (finding) [facility] [place] Start: 1995 Sex Assigned At Not on file [facility] Start: 08-04-2022 Tobacco use and exposure Smoke less tobacco non-user [facility] [place] Start: 12-20-2022 End: 09-29-2024 History of Social function [facility] Start: 12-20-2022 End: 09-29-2024 Social connection and isolation panel [facility] [place] Do you belong to any clubs or organizations such as adventist groups, unions, fraternal or athletic groups, or school groups? No [facility] [place] How often do you att end meetings of the clubs or organizations you belong to? Patient refused [facility] [place] Are you now , , , , never or living with a partner? Living with partner [facility] [place] How often to you hav e a drink containing alcohol? 2-4 times a month [facility] [place] How many standard dr inks containing alcohol do you have on a typical day? 1 or 2 [facility] [place] How often do you hav e 6 or more drinks on 1 occasion? Never [facility] [place] How hard is it for y ou to pay for the very basics like food, housing, medical care, and heating Not very hard [facility] [place] Do you feel stress - tense, restless, nervous, or anxious, or unable to sleep at night because your mind is troubled all the time - these days [OSQ] To some extent [facility] [place] (I/We) worried wheth er (my/our) food would run out before (I/we) got money to buy more. Never true [facility] [place] Functional Status Date Assessment Result Facility 10-13-2014 Are you deaf, or do you have serious difficulty hearing No 10/13/2014 4:12 PM EDT Gauri Clifton MA No [facility] [place] 10-13-2014 Are you blind, or do you have serious difficulty seeing, even when wearing glasses No 10/13/2014 4:12 PM EDT Gauri Clifton MA No [facility] [place] 10-13-2014 Do you have serious difficulty walking or climbing stairs No 10/13/2014 4:12 PM EDT Gauri Clifton MA [facility] 10-13-2014 Do you have difficul ty dressing or bathing No 10/13/2014 4:12 PM EDT Gauri Clifton MA [facility] 10-13-2014 Because of a physica l, mental, or emotional condition, do you have difficulty doing errands alone such as visiting a physician's office or shopping No 10/13/2014 4:12 PM EDT Gauri Clifton MA No [facility] [place] Mental Status Date Assessment Result Facility 10-13-2014 Because of a physica l, mental, or emotional condition, do you have serious difficulty concentrating, remembering, or making decisions No 10/13/2014 4:12 PM EDT Gauri Clifton MA No [facility] [place] Clinical Notes 10-05-2018 to 09-29-2024 Clark Hoyos APRN.POLICE RADIO DISPATCHER - 09/29/2024 12:32 PM Zen Mcneill PA - 03/26/2023 11:13 AM Joaquina Rob APRN.POLICE RADIO DISPATCHER - 12/20/2022 12:02 PM EDT Note Date & Type Note Facility 09-29-2024 Note HNO ID: [id number] Author: CLARK HOYOS APRN.POLICE RADIO DISPATCHER Service: ? Author Type: Nurse Practitioner Type: Progress Notes Filed: 09/29/2024 13:05 Note Text: Subjective HPI Nontoxic-appearing female presents urgent care chief complaint right ear pain. Duration of symptoms 2 days. Associated symptoms right ear discomfort. Has been swimming late recently. No ear trauma loss hearing. Hearing is slightly muffled. No otorrhea. No fevers. Past medical history prescription medications allergies reviewed. .Patient presents with: Ear Pain: Right ear pain, feels clogged x 2 days PAST MEDICAL HISTORY Diagnosis Date Anemia in (HCC) 03/12/2014 NEGATIVE MEDICAL HISTORY 09/20/11 normal color vision PAST SURGICAL HISTORY Procedure Laterality Date PAST SURGICAL HISTORY OF 2018 wisdom teeth ALLERGIES Amoxicillin, Cefzil [Cefprozil], and Zithromax [Azithromycin] MEDICATIONS Desogestrel-Ethinyl Estradiol (APRI) 0.15-0.03 mg per tablet Take 1 tablet by mouth once daily. FAMILY HISTORY Problem Relation Age of Onset No Known Problems Mother Hypertension Father Lipids Father No Known Problems Sister No Known Problems Sister No Known Problems Sister No Known Problems Sister No Known Problems Brother Ischemic Heart Disease Maternal Grandmother Heart Maternal Grandfather [place] No Known Problems Paternal Grandmother Heart Attack Paternal Grandfather No Known Problems Son Social History Tobacco Use Smoking status: Never Smokeless tobacco: Never Vaping Use Vaping status: Never Used Substance Use Topics Alcohol use: Not Currently Drug use: No BP 100/70 Pulse 82 Temp 36.8 ?C (98.3 ?F) Resp 22 Wt 87.4 kg (192 lb 10.9 oz) LMP 07/08/2022 (Exact Date) SpO2 97% BMI 35.10 kg/m? Review of Systems Constitutional: Negative for chills, fever and malaise/fatigue. HENT: Positive for ear pain. Negative for congestion, ear discharge, sinus pain and sore throat. Eyes: Negative for blurred vision, pain, discharge and redness. Respiratory: Negative for cough, hemoptysis, sputum production, shortness of breath, wheezing and stridor. Cardiovascular: Negative for chest pain. Gastrointestinal: Negative for abdominal pain, diarrhea, nausea and vomiting. Musculoskeletal: Negative for myalgias. Skin: Negative for itching and rash. Neurological: Negative for dizziness and headaches. Objective Physical Exam HENT: Head: Normocephalic. Jaw: No trismus, tenderness, swelling or pain on movement. Right Ear: External ear normal. Left Ear: Tympanic membrane, ear canal and external ear normal. Ears: Comments: Edema erythema noted to right auditory canal. Pain with palpation to pinna. No external erythema edema. Unable to visualize TM due to edema. Mild tenderness with palpation over TM joints bilaterally. Nose: No congestion. Mouth/Throat: Mouth: Mucous membranes are moist. Pharynx: Oropharynx is clear. Uvula midline. No oropharyngeal exudate or posterior oropharyngeal erythema. Eyes: Pupils: Pupils are equal, round, and reactive to light. Cardiovascular: Rate and Rhythm: Normal rate. Pulmonary: Effort: Pulmonary effort is normal. No accessory muscle usage, respiratory distress or retractions. Breath sounds: No stridor. No wheezing, rhonchi or rales. Abdominal: Palpations: Abdomen is soft. Tenderness: There is no abdominal tenderness. There is no guarding or rebound. Musculoskeletal: Cervical back: No erythema or tenderness. No pain with movement. Normal range of motion. Lymphadenopathy: Cervical: No cervical adenopathy. Neurological: General: No focal deficit present. Mental Status: She is alert and oriented to person, place, and time. Mental status is at baseline. ASSESSMENT/PLAN: 1. Acute otitis externa of right ear, unspecified type - ICD9: 380.10, ICD10: H60.501 Diagnosis otitis externa right ear. Placed on ofloxacin otic drops. Patient was educated on supportive therapies. Patient will follow up with primary care provider as needed. Patient was instructed to immediately proceed to emergency room for any new, worsening, or symptoms lasting longer than anticipated. The patient's clinical presentation is otherwise unremarkable at this time. Based on exam and clinical finding, the patient is stable for discharge. Plan of care was discussed with patient. Patient verbalizes understanding and agrees to plan of care. This note was generated using [employer] software. It may contain errors in wording, punctuation, or spelling. Clark Hoyos APRN.[facility] 09-29-2024 History of Present illness Narrative Subjective HPI Nontoxic-appearing female presents urgent care chief complaint right ear pain. Duration of symptoms 2 days. Associated symptoms right ear discomfort. Has been swimming late recently. No ear trauma loss hearing. Hearing is slightly muffled. No otorrhea. No fevers. Past medical history prescription medications allergies reviewed. .Patient presents with: Ear Pain: Right ear pain, feels clogged x 2 days PAST MEDICAL HISTORY Diagnosis Date Anemia in (HCC) 03/12/2014 NEGATIVE MEDICAL HISTORY 09/20/11 normal color vision PAST SURGICAL HISTORY Procedure Laterality Date PAST SURGICAL HISTORY OF 2018 wisdom teeth ALLERGIES Amoxicillin, Cefzil [Cefprozil], and Zithromax [Azithromycin] MEDICATIONS Desogestrel-Ethinyl Estradiol (APRI) 0.15-0.03 mg per tablet Take 1 tablet by mouth once daily. FAMILY HISTORY Problem Relation Age of Onset No Known Problems Mother Hypertension Father Lipids Father No Known Problems Sister No Known Problems Sister No Known Problems Sister No Known Problems Sister No Known Problems Brother Ischemic Heart Disease Maternal Grandmother Heart Maternal Grandfather [place] No Known Problems Paternal Grandmother Heart Attack Paternal Grandfather No Known Problems Son Social History Tobacco Use Smoking status: Never Smokeless tobacco: Never Vaping Use Vaping status: Never Used Substance Use Topics Alcohol use: Not Currently Drug use: No BP 100/70 Pulse 82 Temp 36.8 C (98.3 F) Resp 22 Wt 87.4 kg (192 lb 10.9 oz) LMP 07/08/2022 (Exact Date) SpO2 97% BMI 35.10 kg/m Review of Systems Constitutional: Negative for chills, fever and malaise/fatigue. HENT: Positive for ear pain. Negative for congestion, ear discharge, sinus pain and sore throat. Eyes: Negative for blurred vision, pain, discharge and redness. Respiratory: Negative for cough, hemoptysis, sputum production, shortness of breath, wheezing and stridor. Cardiovascular: Negative for chest pain. Gastrointestinal: Negative for abdominal pain, diarrhea, nausea and vomiting. Musculoskeletal: Negative for myalgias. Skin: Negative for itching and rash. Neurological: Negative for dizziness and headaches. Objective Physical Exam HENT: Head: Normocephalic. Jaw: No trismus, tenderness, swelling or pain on movement. Right Ear: External ear normal. Left Ear: Tympanic membrane, ear canal and external ear normal. Ears: Comments: Edema erythema noted to right auditory canal. Pain with palpation to pinna. No external erythema edema. Unable to visualize TM due to edema. Mild tenderness with palpation over TM joints bilaterally. Nose: No congestion. Mouth/Throat: Mouth: Mucous membranes are moist. Pharynx: Oropharynx is clear. Uvula midline. No oropharyngeal exudate or posterior oropharyngeal erythema. Eyes: Pupils: Pupils are equal, round, and reactive to light. Cardiovascular: Rate and Rhythm: Normal rate. Pulmonary: Effort: Pulmonary effort is normal. No accessory muscle usage, respiratory distress or retractions. Breath sounds: No stridor. No wheezing, rhonchi or rales. Abdominal: Palpations: Abdomen is soft. Tenderness: There is no abdominal tenderness. There is no guarding or rebound. Musculoskeletal: Cervical back: No erythema or tenderness. No pain with movement. Normal range of motion. Lymphadenopathy: Cervical: No cervical adenopathy. Neurological: General: No focal deficit present. Mental Status: She is alert and oriented to person, place, and time. Mental status is at baseline. ASSESSMENT/PLAN: 1. Acute otitis externa of right ear, unspecified type - ICD9: 380.10, ICD10: H60.501 Diagnosis otitis externa right ear. Placed on ofloxacin otic drops. Patient was educated on supportive therapies. Patient will follow up with primary care provider as needed. Patient was instructed to immediately proceed to emergency room for any new, worsening, or symptoms lasting longer than anticipated. The patient's clinical presentation is otherwise unremarkable at this time. Based on exam and clinical finding, the patient is stable for discharge. Plan of care was discussed with patient. Patient verbalizes understanding and agrees to plan of care. This note was generated using [employer] software. It may contain errors in wording, punctuation, or spelling. Clark Hoyos APRN.LOLA documented in this encounter [facility] [place] 03-26-2023 History of Present illness Narrative This note was created using Panor[employer]. Subjective Abimbola Hdz is a 27 year old female. HPI 27-year-old female presents for sore throat and fever. Sore throat started last night. No known exposure to strep. Fever this morning. Has not taken any Tylenol or Motrin. No cough or other URI symptoms. No congestion. PAST MEDICAL HISTORY Diagnosis Date Anemia in 03/12/2014 NEGATIVE MEDICAL HISTORY 09/20/11 normal color vision PAST SURGICAL HISTORY Procedure Laterality Date PAST SURGICAL HISTORY OF 2018 wisdom teeth ALLERGIES Amoxicillin, Cefzil [Cefprozil], and Zithromax [Azithromycin] MEDICATIONS Desogestrel-Ethinyl Estradiol (APRI) 0.15-0.03 mg per tablet Take 1 tablet by mouth once daily. clindamycin (CLEOCIN HCL) 300 mg capsule Take 1 capsule by mouth three times a day for 10 days. FAMILY HISTORY Problem Relation Age of Onset No Known Problems Mother Hypertension Father Lipids Father No Known Problems Sister No Known Problems Sister No Known Problems Sister No Known Problems Sister No Known Problems Brother Ischemic Heart Disease Maternal Grandmother Heart Maternal Grandfather SD No Known Problems Paternal Grandmother Heart Attack Paternal Grandfather No Known Problems Son Social History Tobacco Use Smoking status: Never Smokeless tobacco: Never Vaping Use Vaping Use: Never used Substance Use Topics Alcohol use: Not Currently Drug use: No Review of Systems Constitutional: Positive for fever. Negative for chills. HENT: Positive for sore throat. Negative for congestion and ear pain. Respiratory: Negative for cough and shortness of breath. Cardiovascular: Negative for chest pain. Gastrointestinal: Negative for diarrhea and vomiting. Objective BP 122/64 Pulse 107 Temp (!) 39.1 C (102.4 F) (Tympanic) Resp 18 Wt 101.5 kg (223 lb 12.8 oz) LMP 07/08/2022 (Exact Date) SpO2 97% BMI 40.77 kg/m Physical Exam Vitals and nursing note reviewed. Constitutional: General: She is not in acute distress. Appearance: Normal appearance. She is not toxic-appearing. HENT: Right Ear: Tympanic membrane and ear canal normal. Left Ear: Tympanic membrane and ear canal normal. Nose: Nose normal. Mouth/Throat: Mouth: Mucous membranes are moist. Pharynx: Oropharyngeal exudate and posterior oropharyngeal erythema present. Tonsils: Tonsillar exudate present. 2+ on the right. 2+ on the left. Eyes: Conjunctiva/sclera: Conjunctivae normal. Cardiovascular: Rate and Rhythm: Normal rate and regular rhythm. Pulmonary: Effort: Pulmonary effort is normal. Breath sounds: Normal breath sounds. Neurological: Mental Status: She is alert. Assessment and Plan ASSESSMENT/PLAN: 1. Strep pharyngitis - ICD9: 034.0, ICD10: J02.0 (primary diagnosis) - suspect strep - Group A strep molecular testing positive - antibiotic as written-clindamycin. Patient has allergy to cephalosporin, azithromycin and amoxicillin. - Discussed supportive care treatment with fluids, rest and analgesia. - Contagious dz precautions discussed- including considered contagious until on antibiotics for 24 hours 2. Sore throat - ICD9: 462, ICD10: J02.9 - STREP A MOLECULAR (POC) Diagnosis and treatment plan were discussed and questions were answered to the patient's satisfaction. Pt acknowledged understanding of concepts and follow up plan. Specific signs and symptoms that would indicate the need for higher level of care were discussed in detail warranting prompt ER evaluation. SAHIL Haynes documented in this encounter [facility] [place] 12-20-2022 History of Present illness Narrative 12/20/2022 Patient presents with: Establish Care SUBJECTIVE: This is a 27 year old that is here today for Above Complaints. Sometimes feels like heart will skip a beat. Happens a couple times a week. Mostly feels it after she eats a lot of something or junk food. Happens for less than a minute. Denies accompanying symptoms of diaphoresis, lightheadedness, dizziness, SOB, dyspnea, jaw/back pain, chest pain, nausea or vomiting Reports period is 23 days late and knows she is not . Reports recently restarted her control in the last couple of weeks. Denies intercourse within the last 60 days Does not follow and specific diet or exercise regime Past medical, surgical, family, social hx, medications, allergies and health maintenance reviewed and updated. PAST MEDICAL HISTORY Diagnosis Date Anemia in 03/12/2014 NEGATIVE MEDICAL HISTORY 09/20/11 normal color vision ALLERGIES Amoxicillin, Cefzil [Cefprozil], and Zithromax [Azithromycin] MEDICATIONS Current Outpatient Medications Medication Sig Desogestrel-Ethinyl Estradiol (APRI) 0.15-0.03 mg per tablet Take 1 tablet by mouth once daily. predniSONE (DELTASONE) 10 mg tablet Take 4 tabs daily x 3 days, then 3 tabs x 3 days, 2 tabs x 3 days, then 1 tab x3 days with food. No current facility-administered medications for this visit. Medications and allergies reviewed by this provider. SOCIAL HISTORY Social History Tobacco Use Smoking status: Never Smokeless tobacco: Never Vaping Use Vaping Use: Never used Substance Use Topics Alcohol use: Not Currently Drug use: No REVIEW OF SYSTEMS GENERAL: No weight loss, malaise or fevers HEENT: Negative for frequent or significant headaches, No changes in hearing or vision, no nose bleeds or other nasal problems NECK: Negative for lumps, goiter, pain and significant neck swelling RESPIRATORY: Negative for cough, hemoptysis, wheezing, COPD, dyspnea or shortness of breath CARDIOVASCULAR: Negative for chest pain, leg swelling, hypertension, CHF or palpitations GI: No nausea, vomiting, or diarrhea : No history of dysuria, frequency or incontinence SOCIAL MEDIA MANAGER: SEE HPI MUSCULOSKELETAL: Negative for joint pain or swelling, back pain or muscle pain SKIN: Negative for lesions, rash, and itching PSYCH: Negative for sleep disturbance, mood disorder and recent psychosocial stressors HEMATOLOGY/LYMPHOLOGY: Negative for prolonged bleeding, bruising easily or swollen nodes ENDOCRINE: Negative for cold or heat intolerance, polyuria, polydipsia and goiter NEURO: No history of headaches, syncope, paralysis, seizures or tremors All other reviewed and negative other than HPI. OBJECTIVE: BP 118/74 Pulse 71 Resp 18 Ht 157.8 cm (5' 2.13) Wt 103.6 kg (228 lb 6.4 oz) LMP 07/08/2022 (Exact Date) SpO2 98% BMI 41.61 kg/m . Vital signs reviewed by this provider. APPEARANCE Well appearing, alert, in no acute distress, well-hydrated, well nourished. EYES conjunctiva and sclera normal. EARS External ears normal, canals clear NECK Supple, no adenopathy; thyroid symmetric, normal size, no bruits HEART RRR with normal S1 and S2, no murmurs, no gallops, no JVD appreciated LUNG clear to auscultation. No wheezes, rhonchi or rales EXTREMITIES Extremities normal, No deformities, No skin discoloration, and No edema SKIN Skin color, texture, turgor normal, no suspicious rashes or lesions to exposed skin DEPRESSION ASSESSMENT Never done COVID-19 VACCINE(1) due on 12/21/2023 INFLUENZA(1) due on 12/23/2022 PAP TESTING due on 08/04/2025 DTAP,TDAP,TD(8 - Td or Tdap) due on 02/21/2029 HEPATITIS B Completed HEPATITIS C SCREENING Completed HIV SCREENING Completed HPV VACCINE Aged Out ASSESSMENT/PLAN: 1. Encounter for medical examination to establish care - ICD9: V70.9, ICD10: Z00.00 (primary diagnosis) - Counseled on healthy diet and regular exercise - Calcium intake with supplements or by diet of 1000 mg/day for under 50, 5222-8759 mg/day for 50+ - Discussed need and benefit for weight loss. BMI 41.61 kg/(m^2) - Depression screening tool completed and reviewed with patient. Based on score and interview, patient is not at risk for depression and recommended no further intervention at this time. - Follow up for annual exam in one year - CBC + DIFF - COMP METABOLIC PANEL 2. Screening for hyperlipidemia - ICD9: V77.91, ICD10: Z13.220 - LIPID PANEL BASIC 3. Palpitations - ICD9: 785.1, ICD10: R00.2 - no red flag symptoms or exam findings - red flag symptoms discussed, verbalizes understanding - follow-up if becoming more frequent to ER with red flag symptoms - TSH BLD 4. History of anemia - ICD9: V12.3, ICD10: Z86.2 - CBC + DIFF 5. Missed period - ICD9: 626.4, ICD10: N92.6 - offered test- patient declines - would follow-up with SOCIAL MEDIA MANAGER if persists 6. Obesity, Class III, BMI >= 40 - ICD9: 278.01, ICD10: E66.01 Newly diagnosed - Behavioral intervention - Lengthy discussion in office today regarding diet and exercise. Discussed use of small plate to eat meals from, drink 1 glass of water 10-15 minutes prior to eating meal, drink 8 glasses of water daily, eat fresh fruit and vegetable during meal first then lean protein such as grilled/baked chicken breast or fish, limit carbohydrate intake (less pasta, breads, rice and snack foods) as well as limiting sugars (desserts etc). Important to count / track your calories and exercise as well. Joaquina German APRN.CNP Prescription instructions reviewed with patient as applicable. Patient advised if symptoms do not improve or if symptoms worsen sooner, to contact their primary care physician. Potential red flag symptoms discussed with the patient. Reviewed appropriate action plan to take if red flag symptoms occur. Patient agreeable to treatment plan. I spent a total of 30 minutes on the date of the service which included preparing to see the patient, [id number] patient care, completing clinical documentation, obtaining and/or reviewing separately obtained history, performing a medically appropriate examination, counseling and educating the patient/family/caregiver, and ordering medications, tests, or procedures. documented in this encounter [facility] [place] 08-04-2022 History of Present illness Narrative Abimbola is a 27 year old who presents for an annual gynecologic exam without complaints. Menses: cycles every 28 days and 5 days of flow. Contraception: combined hormonal contraceptives HPV vaccine: No Last Pap: 10/12/2018 normal HPV: N/A History of abnormal pap: No Last mammogram: never Sexually active: Yes Pain with intercourse: No Postcoital bleeding: No OB History T2 L2 SAB0 IAB0 Ectopic0 Multiple0 Live Births2 Manager Social History LMP: 07/08/2022 (Exact Date), Having periods Age at Menarche: Age at First : Age at Menopause: Manager Social History Comments: Sexual Activity: Yes; Male Contraception: Pill PAST MEDICAL HISTORY Diagnosis Date Anemia in 03/12/2014 NEGATIVE MEDICAL HISTORY 09/20/11 normal color vision PAST SURGICAL HISTORY Procedure Laterality Date PAST SURGICAL HISTORY OF 2018 wisdom teeth FAMILY HISTORY Problem Relation Age of Onset No Known Problems Paternal Grandmother Heart Attack Paternal Grandfather Heart Maternal Grandfather SD No Known Problems Maternal Grandmother No Known Problems Mother Hypertension Father Lipids Father No Known Problems Sister No Known Problems Brother No Known Problems Sister No Known Problems Sister No Known Problems Sister No Known Problems Son SOCIAL HISTORY Social History Tobacco Use Smoking status: Never Smokeless tobacco: Never Vaping Use Vaping Use: Never used Substance Use Topics Alcohol use: Not Currently Drug use: No REVIEW OF SYSTEMS Abdomen: No abdominal pain, nausea, vomiting, diarrhea, or constipation. No bloating, early satiety, indigestion, or increased flatulence. Bladder: No dysuria, gross hematuria, urinary frequency, urinary urgency, or incontinence. Breast: No breast lumps, nipple d/c, overlying skin changes, redness or skin retraction. Allergies and current medication updated:Yes EXAM: BP 122/66 Ht 5' 2.75 (1.59m) Wt 218 lb (98.9kg) LMP 07/08/2022 BMI 38.92 kg/(m^2). GENERAL: pleasant, female in no apparent distress HEENT: Normocephalic, atraumatic, and no lesions NECK: Supple, full range of motion, no adenopathy, and thyroid normal DERMATOLOGY: Normal, without lesions, non-icteric, and non-hirsute BREAST: soft, non-tender, symmetric, normal nipple-areolar complex, no lymphadenopathy, no nipple discharge, and upper left breast between the 10-12 position there is a firm area approximately 3x3 cm- ?? Fibrocystic changes or fibroadenoma CHEST: Normal inspiratory effort ABDOMEN: soft, non-tender, and no masses PELVIC: external genitalia normal, normal Bartholin's glands, urethra, [place]'s glands, no vulvar lesions, no cervical lesions, good vaginal support, physiologic discharge present, normal appearing perineal body and perianal region BIMANUAL: uterus normal size, shape and consistency, no adnexal masses, and non-tender RECTOVAGINAL: deferred. NEURO: alert and oriented x3,exam grossly non-focal EXTREMITIES: normal ASSESSMENT/PLAN: 1) Health maintenance: Pap done with reflex HPV. Mammogram starting age 40. Nutrition, exercise and routine health maintenance exams reviewed. Calcium/Vitamin D supplementation information provided. 2) Contraception: combined hormonal contraceptives. Contraceptive options reviewed and information provided. 3) STD screening: Declined STD check. 4) Follow up one year or sooner as needed 5) left breast US ordered Bere Bruno APRN.CNP documented in this encounter [facility] [place] 10-04-2021 History of Present illness Narrative Images from the original note were not included. Subjective HPI Nontoxic-appearing female presents urgent care chief complaint rash. Duration of symptoms 4 days. Associated symptoms pruritic erythematous rash on her face. First noticed this around her lips. Has since spread around left eye. Denies any pain. No known sick contacts. Denies any environmental lifestyle changes. No medication changes no antibiotic use. Denies any visual changes eye pain flashes light or floaters. Does not wear contacts. Denies any fever body aches chills nausea vomiting abdominal pain change in bowel or bladder habits. Denies chance of is not breast-feeding. Past medical history prescription medication use allergies reviewed. .Patient presents with: Rash: started on lips x 4 days, eye x 1 day PAST MEDICAL HISTORY Diagnosis Date Anemia in 03/12/2014 NEGATIVE MEDICAL HISTORY 09/20/11 normal color vision PAST SURGICAL HISTORY Procedure Laterality Date PAST SURGICAL HISTORY OF 2018 wisdom teeth ALLERGIES Amoxicillin, Cefzil [Cefprozil], and Zithromax [Azithromycin] MEDICATIONS Desogestrel-Ethinyl Estradiol (APRI) 0.15-0.03 mg per tablet Take 1 tablet by mouth once daily. FAMILY HISTORY Problem Relation Age of Onset No Known Problems Paternal Grandmother Heart Attack Paternal Grandfather Heart Maternal Grandfather SD No Known Problems Maternal Grandmother No Known Problems Mother Hypertension Father Lipids Father No Known Problems Sister No Known Problems Brother No Known Problems Sister No Known Problems Sister No Known Problems Sister No Known Problems Son Social History Tobacco Use Smoking status: Never Smoker Smokeless tobacco: Never Used Vaping Use Vaping Use: Never used Substance Use Topics Alcohol use: Not Currently Drug use: No BP 116/68 Pulse 76 Temp 37.3 C (99.2 F) Resp 16 Wt 84.4 kg (186 lb) LMP 2021 (Exact Date) SpO2 99% BMI 33.48 kg/m Review of Systems Constitutional: Negative for chills, fever and malaise/fatigue. HENT: Negative for congestion, ear discharge, ear pain, sinus pain and sore throat. Eyes: Negative for blurred vision, pain, discharge and redness. Respiratory: Negative for cough, hemoptysis, sputum production, shortness of breath, wheezing and stridor. Cardiovascular: Negative for chest pain. Gastrointestinal: Negative for abdominal pain, diarrhea, nausea and vomiting. Musculoskeletal: Negative for myalgias. Skin: Positive for itching and rash. Neurological: Negative for dizziness and headaches. Objective Physical Exam Constitutional: General: She is not in acute distress. Appearance: She is not diaphoretic. HENT: Head: Normocephalic. Mouth/Throat: Mouth: Mucous membranes are moist. Pharynx: Oropharynx is clear. No oropharyngeal exudate or posterior oropharyngeal erythema. Eyes: Conjunctiva/sclera: Conjunctivae normal. Pupils: Pupils are equal, round, and reactive to light. Cardiovascular: Rate and Rhythm: Normal rate and regular rhythm. Heart sounds: Normal heart sounds. Pulmonary: Effort: Pulmonary effort is normal. No tachypnea, accessory muscle usage or respiratory distress. Breath sounds: Normal breath sounds. No stridor. No wheezing, rhonchi or rales. Abdominal: Palpations: Abdomen is soft. Tenderness: There is no abdominal tenderness. Musculoskeletal: Cervical back: Normal range of motion and neck supple. No rigidity or tenderness. Lymphadenopathy: Cervical: No cervical adenopathy. Skin: General: Skin is warm and dry. Comments: Erythematous base maculopapular rash linear pattern with fluid-filled vesicles noted on the highlighted area. No visual changes. No eye involvement. No eye pain. No desquamation of of skin note involvement of mucosal membrane. Neurological: Mental Status: She is alert and oriented to person, place, and time. ASSESSMENT/PLAN: 1. Contact dermatitis, unspecified contact dermatitis type, unspecified trigger - ICD9: 692.9, ICD10: L25.9 Patient diagnosed with contact dermatitis. Suspicious of poison surinder. Placed on prednisone taper. Patient was educated on supportive therapies. Patient will follow up with primary care provider as needed. Patient was instructed to immediately proceed to emergency room for any new, worsening, or symptoms lasting longer than anticipated. The patient's clinical presentation is otherwise unremarkable at this time. Based on exam and clinical finding, the patient is stable for discharge. Plan of care was discussed with patient. Patient verbalizes understanding and agrees to plan of care. This note was generated using [employer] software. It may contain errors in wording, punctuation, or spelling. Clark Hoyos APRN.LOLA documented in this encounter [facility] [place] 10-05-2018 History of Past i llness Narrative Problem Noted Date Resolved Date Marijuana use 10/05/2018 08/08/2019 Overview: 10/05/18 - stopped with positive test - Jada Viramontes MD Patient request for diagnostic testing 9 08/08/2019 Overview: 10/04/2018Patient desires nuchal ultrasound. TKRN Anemia in 03/12/2014 09/15/2016 Supervision of normal first 11/28/2013 09/15/2016 Abnormal antibody titer 10/28/2013 09/16/19 17 Overview: October 28, 2013 Screening postiive but more in depth analysis neg. for any specific antibodies. Likely clinically insignificant but recommend repeat ab screen in one month. Umm Hagan MD with uncertain dates, antepartum 10/2109/15/2016 Overview: 10/21/2013Patient states her last menstrual period was August 04, 2013. This was her first menses off control pills. She states she had a negative test in mid August when her period was due. Patient has an appointment scheduled in [address] Kalee Martell. TKRN documented as of this encounter (statuses as of 10/04/2021) [facility] [place] History of Past illness Narrative* Problem Noted Date Resolved Date Marijuana use 10/05/2018 08/08/2019 Overview: 10/05/18 - stopped with positive test - Jada Viramontes MD Patient request for diagnostic testing 9 08/08/2019 Overview: 10/04/2018Patient desires nuchal ultrasound. TKRN Anemia in 03/12/2014 09/15/2016 Supervision of normal first 11/28/2013 09/15/2016 Abnormal antibody titer 10/28/2013 09/16/19 17 Overview: October 28, 2013 Screening postiive but more in depth analysis neg. for any specific antibodies. Likely clinically insignificant but recommend repeat ab screen in one month. Umm Hagan MD with uncertain dates, antepartum 10/2109/15/2016 Overview: 10/21/2013Patient states her last menstrual period was August 04, 2013. This was her first menses off control pills. She states she had a negative test in mid August when her period was due. Patient has an appointment scheduled in [address] Kalee Martell. TKRN documented as of this encounter (statuses as of 08/05/2022) [facility] [place] History of Past illness Narrative* Problem Noted Date Diagnosed Date Resolved Date Marijuana use 10/05/2018 08/08/2019 Overview: 10/05/18 - stopped with positive test - Jada Viramontes MD Patient request for diagnostic testing 10/04/2018 08/08/2019 Overview: 10/04/2018Patient desires nuchal ultrasound. TKRN Anemia in 03/12/2014 09/16/19 17 Supervision of normal first 11/28/2013 09/15/2016 Abnormal antibody titer 10/28/201308/23 Overview: October 28, 2013 Screening postiive but more in depth analysis neg. for any specific antibodies. Likely clinically insignificant but recommend repeat ab screen in one month. Umm Hagan MD with uncertain dates, antepartum 10/21/2013 09/15/2016 Overview: 10/21/2013Patient states her last menstrual period was August 04, 2013. This was her first menses off control pills. She states she had a negative test in mid August when her period was due. Patient has an appointment scheduled in [address] Kalee Martell. TKRN documented as of this encounter (statuses as of 12/20/2022) [facility] [place] History of Past illness Narrative* Problem Noted Date Diagnosed Date Resolved Date Marijuana use 10/05/2018 08/08/2019 Overview: 10/05/18 - stopped with positive test - Jada Viramontes MD Patient request for diagnostic testing 10/04/2018 08/08/2019 Overview: 10/04/2018Patient desires nuchal ultrasound. TKRN Anemia in 03/12/2014 09/16/19 17 Supervision of normal first 11/28/2013 09/15/2016 Abnormal antibody titer 10/28/201308/23 Overview: October 28, 2013 Screening postiive but more in depth analysis neg. for any specific antibodies. Likely clinically insignificant but recommend repeat ab screen in one month. Umm Hagan MD with uncertain dates, antepartum 10/21/2013 09/15/2016 Overview: 10/21/2013Patient states her last menstrual period was August 04, 2013. This was her first menses off control pills. She states she had a negative test in mid August when her period was due. Patient has an appointment scheduled in [address] Kalee Martell. TKRN documented as of this encounter (statuses as of 03/26/2023) [facility] Contact dermatitis, unspecified contact dermatitis type, unspecified trigger- Primary documented in this encounter [facility] Diagnosis Encounter for gynecological examination (general) (routine) without abnormal findings- Primary Screening for cervical cancer Screening for malignant neoplasm of the cervix Encounter for surveillance of contraceptive pills Surveillance of previously prescribed contraceptive pill Fibrocystic breast changes, left documented in this encounter [facility] Diagnosis Encounter for medical examination to establish care- Primary Screening for hyperlipidemia Screening for lipoid disorders Palpitations History of anemia Personal history of diseases of blood and blood-forming organs Missed period Irregular menstrual cycle Obesity, Class III, BMI >= 40 Morbid [facility] Strep ph[facility]itis- Primary Streptococcal sore throat Sore throat Acute pharyngitis [facility] Acute otitis externa of right ear, unspecified type- Primary documented in this encounter [facility] Diagnostic Procedure Only (Routine) - Authorized Specialty Diagnoses / Procedures Referred By Sasha chau Referred To Contact [facility] Diagnoses Fibrocystic breast changes, left Procedures US BREAST LTD LEFT US BREAST UNI REAL TIME WITH IMAGE LIMITED [place], Bere, CHEMIST ASSISTANT.POLICE RADIO DISPATCHER [address] [place] [address] [facility] [address] [place] [address] Referral ID Status Reason Start Date Expiration Date Visits Requested Visits Authorized [id number] Authorized Auto-Generat ed Referral 08/04/2022 09/03/2023 1 1 [facility] [place] Summary Purpose Family History No Family History Records FoundNo Family History Records Found Advance Directives No Advanced Directives Records FoundNo Advanced Directives Records Found Additional Source Comments INFORMATION SOURCE (unrecogn ized section and content) DATE CREATED AUTHOR 06/01/2021 [facility] DATE CREATED AUTHOR AUTHOR'S ORGANIZ ATION 09/29/2024 [facility] Source Comments (unrecognize d section and content) In the event this informatio n is protected by the Federal Confidentiality of Alcohol and Drug Abuse Patient Records regulations: The Federal rules restrict any use of the information to criminally investigate or prosecute any alcohol or drug abuse patient.[facility] the event this information is protected by the Federal Confidentiality of Alcohol and Drug Abuse Patient Records regulations: The Federal rules restrict any use of the information to criminally investigate or prosecute any alcohol or drug abuse patient.[facility] the event this information is protected by the Federal Confidentiality of Alcohol and Drug Abuse Patient Records regulations: The Federal rules restrict any use of the information to criminally investigate or prosecute any alcohol or drug abuse patient.[facility] the event this information is protected by the Federal Confidentiality of Alcohol and Drug Abuse Patient Records regulations: The Federal rules restrict any use of the information to criminally investigate or prosecute any alcohol or drug abuse patient.[facility] the event this information is protected by the Federal Confidentiality of Alcohol and Drug Abuse Patient Records regulations: The Federal rules restrict any use of the information to criminally investigate or prosecute any alcohol or drug abuse patient.[facility] [place] Reason for Visit (unrecogniz ed section and content) Reason Comments Rash started on lips x 4 days, eye x 1 day Reason Comments Yearly Exam Reason Comments Establish Care Reason Comments Sore Throat ST x 1 day Reason Comments Ear Pain Right ear pain, feel s clogged x 2 days Care Teams (unrecognized sec tion and content) Educational Assistant Relationship Specialty Start Date End Date Ricardo Tellez MD [address] [place] [address] PCP - General Family Medicine 12/23/22 Educational Assistant Relationship Specialty Start Date End Date Ricardo Tellez MD [address] [place], [place] [id number] PCP - General Family Medicine 12/23/22 Joaquina German APRN.CNP [address] [place], [place] [id number] Certified Anesthesiologist Assistant [facility] 03/30/24 FOR RECORDS PERTAINING TO PATIENTS WHO ARE OR HAVE BEEN ENROLLED IN A CHEMICAL DEPENDENCY/SUBSTANCEABUSE PROGRAM, SOME INFORMATION MAY BE OMITTED. This clinical summary was aggregated from multiple sources. Caution should be exercised in using it in the provision of clinical care. This summary normalizes information from multiple sources, and as a consequence, information in this document may materially change the coding, format and clinical context of patient data. In addition, data may be omitted in some cases. CLINICAL DECISIONS SHOULD BE BASED ON THE PRIMARY CLINICAL RECORDS. [facility] [employer] provides no warranty or guarantee of the accuracy or completeness of information in this document.
[2024-12-13 21:03] VITALS: PULSE 72; RESP 16
[2024-12-13] MEDS: Albuterol 2.5 MG/3 ML VIAL.NEB. INHALATION (21:03)
[2024-12-13 22:34] VITALS: BP 104/64; PULSE 67; RESP 18; TEMP 36.6; O2SAT 100
== END 2024-12-13 22:36 | disposition home or self-care (01) ==
PROVIDERS: Emergency Provider Emergency Medicine; Visit Provider Emergency Medicine
DX: J06.9 Acute upper respiratory infection, unspecified (principal); J98.01 Acute bronchospasm; S23.41XA Sprain of ribs, initial encounter; X58.XXXA Exposure to other specified factors, initial encounter; H92.01 Otalgia, right ear; F17.290 Nicotine dependence, other tobacco product, uncomplicated
CPT/HCPCS: 71111; 94640; 99282